=== PATIENT | female | born 1985 | race African-American/Black ===

== ENCOUNTER 2016-09-27 01:32 | Emergency (ER) | payer OTHER ==
[~2016-09-27] VITALS: Ht 172.7 cm; Wt 70.3 kg
[~2016-09-27 01:32] MED LIST: AMLODIPINE BESYL5 M1 PO; CYCLOBENZAPRINE10 M1 PO; FLEXERIL10 MG PO; IBUPROFEN600 M1 PO; LASIX20 M1 PO; LISINOPRIL10 M1 PO; LYRICA100 M1 PO; LYRICA50 MG PO; OXYCODONE HCL30 M1 PO; PATADAY2.5 ML OPH; PERCOCET 5-3251 EACH PO; TESSALON PERLE100 M1 PO; ULTRAM(MONOGRAP50 MG PO; VALIUM10 M1 PO; VOLTAREN75 MG PO; ZITHROMAX250 M2 PO
--- NOTE | 2016-09-27 01:47 | ED GENERAL ADULT ---
History of Present Illness General Chief Complaint: Lower Extremity Problems Stated Complaint: DIFF AMBULATING Source: patient, old records, EMS Exam Limitations: no limitations Vital Signs & Intake/Output Vital Signs & Intake/Output Vital Signs Date Time Temp Pulse Resp B/P Pulse O2 O2 Flow FiO2 Ox Delivery Rate 09/27 0527 96.5 67 16 162/88 09/27 0355 66 16 120/98 97 Room Air 09/27 0347 66 131/104 09/27 0346 64 131/104 98 09/27 0137 96.9 75 22 168/110 100 Room Air Allergies Coded Allergies: Penicillins (ANAPHYLAXIS 05/02/16) naproxen (ANAPHYLAXIS 05/02/16) Reconcile Medications Amlodipine Besylate 5 MG TABLET 5 MG PO D HTN (Reported) Diazepam (Valium) 10 MG TABLET 10 MG PO 5 TIMES A DA PRN DJD (Reported) Diclofenac Sodium (Voltaren) 75 MG ECT 1 TAB PO BID PRN PAIN Furosemide (Lasix) 20 MG TABLET 1 TAB PO DAILY SWELLING Ibuprofen 600 MG TABLET 1 TAB PO Q6 PRN PAIN with food Lisinopril 10 MG TABLET 10 MG PO D HTN (Reported) Olopatadine HCl (Pataday) 2.5 ML DROPS 1 GTT OPH TID PRN WATERY EYES Oxycodone HCl 30 MG TABLET 1 TAB PO 5 TIMES A DAY PAIN (Reported) Oxycodone HCl/Acetaminophen (Percocet 5-325 MG Tablet) 1 EACH TABLET 1 TAB PO BID PRN PAIN TEN...[id number] Oxycodone HCl/Acetaminophen (Percocet 5-325 MG Tablet) 5 MG-325 MG TABLET 1 TAB PO Q6P PRN pain Pregabalin (Lyrica) 75 MG CAPSULE 75 MG PO TID NEUROPATHY (Reported) Pregabalin (Lyrica) 50 MG CAP 1 CAP PO QDAY NERVE PAIN Triage Note: PER PT RLE PAIN UNABLE TO AMBULATE FOR AWHILE WAS ON CRUTCHES AFTER A FALL, BUT DENIES ANY NEW INJURY. PAIN 10/10 REPORTS DOES NOT GET MENSES Triage Nurses Notes Reviewed? yes : No Patient currently breastfeeds: No HPI: Patient presents with right lower extremity numbness and weakness over the past 2 days, right hand and arm weakness and pain over the past month and diffuse body pain for the past year. Patient denies any recent trauma. Patient states that she has been able to walk for the past 2 days and her boyfriend has had to carry her everywhere. Patient states that she has to move her right leg by picking it up to move it. There is no pain in the leg it just feels numb. She also has an aching pain in her right arm which is constant for the past month. It increases movement. She rates it as 7 out of 10. There are no aggravating or mitigating factors. The diffuse body pain or cramps and they're constant. There are no aggravating or mitigating factors. There is no radiation. She rates them as 8 out of 10. Patient has been seen by her primary care physician. Patient also states that she is having urinary frequency but there is no incontinence of bowel or bladder. There are no fevers or chills. There is no dysuria. Past History Travel History Traveled to [place] past 21 day No Medical History Any Pertinent Medical History? 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 No Review of Systems Review of Systems Constitutional: Reports: no symptoms. EENTM: Reports: no symptoms. Respiratory: Reports: no symptoms. Cardiovascular: Reports: no symptoms. GI: Reports: no symptoms. Genitourinary: Reports: no symptoms. Musculoskeletal: Reports: see HPI. Skin: Reports: no symptoms. Neurological/Psychological: Reports: see HPI. Hematologic/Endocrine: Reports: no symptoms. Immunologic/Allergic: Reports: no symptoms. All Other Systems: Reviewed and Negative Physical Exam Physical Exam General Appearance: well developed/nourished, alert, awake, anxious, mild distress Head: atraumatic, normal appearance Eyes: Bilateral: PERRL, EOMI. Ears, Nose, Throat: normal pharynx, normal ENT inspection, hearing grossly normal Neck: normal inspection, supple, full range of motion Respiratory: normal breath sounds, chest non-tender, no respiratory distress, lungs clear Cardiovascular: regular rate/rhythm, normal peripheral pulses Peripheral Pulses: 4+ radial (R), 4+ radial (L), 3+ tibialis posterior (R), 3+ tibialis posterior ( L), 3+ dorsalis pedis (R), 3+ dorsalis pedis (L) Gastrointestinal: normal bowel sounds, soft, non-tender, no organomegaly Back: normal inspection, normal range of motion Extremities: normal inspection, normal capillary refill, no edema Neurologic/Psych: awake, alert, oriented x 3, normal mood/affect, MOTOR STRENGTH 3 OUT OF 5 IN BOTH THE RIGHT AND LEFT LEG. tHE PATIENT STATES THAT SHE HAS SENSORY LOSS TO THE RIGHT LEG HOWEVER SHE WITHDRAWS APPROPRIATELY WITH PAIN. cAPILLARY REFILL IS LESS THAN 2 SECONDS. rEFLEXES ARE INTACT. tHERE IS NO PRONATOR DRIFT. tHERE IS NORMAL FINGER TO NOSE AND NORMAL DYSDIADOCHOKINESIA. Reflexes: 3+: knee (R), knee (L), ankle (R), ankle (L). Skin: intact, normal color, warm/dry Lymphatic: no anterior cervical reed Core Measures ACS in differential dx? No CVA/TIA Diagnosis: No Severe Sepsis Present: No Septic Shock Present: No Progress Differential Diagnoses I considered the following diagnoses in my evaluation of the patient: Plan of Care: Orders Procedure Date/time Status URINALYSIS 09/27 146 Complete HUMAN BETA HCG SCREEN 09/27 146 Complete COMPREHENSIVE METABOLIC PANEL 09/27 146 Complete CBC WITHOUT DIFFERENTIAL 09/27 146 Complete Laboratory Tests 09/27/16 0517: Urine Color STRAW, Urine Clarity HAZY H, Urine pH 7.0, Ur Specific Decker 1.015, Urine Protein TRACE H, Urine Ketones NEG, Urine Nitrite NEG, Urine Bilirubin NEG, Urine Urobilinogen 0.2, Ur Leukocyte Esterase NEG, Ur Microscopic SEDIMENT EXAMINED, Urine RBC 1-3, Urine WBC RARE, Ur Epithelial Cells FEW, Urine Mucus RARE, Urine Hemoglobin TRACE-INTACT, Urine Glucose NEG 09/27/16 0209: Anion Gap 8, Estimated GFR > 60, BUN/Creatinine Ratio 20.0, Glucose 89, Calcium 9.5, Total Bilirubin 0.4, AST 14, ALT 19, Alkaline Phosphatase 57, Total Protein 7.4, Albumin 4.1, Globulin 3.3, Albumin/Globulin Ratio 1.2, Total Beta HCG NEGATIVE, CBC w Diff NO MAN DIFF REQ, RBC 4.16 L, MCV 89.9, MCH 29.3, RDW 14.3, MPV 7.0 L, Gran % 51.6, Lymphocytes % 35.7, Monocytes % 6.1, Eosinophils % 6.0 H, Basophils % 0.6, Absolute Granulocytes 3.8, Absolute Lymphocytes 2.6, Absolute Monocytes 0.5, Absolute Eosinophils 0.4, Absolute Basophils 0, PUBS MCHC 32.5 L Diagnostic Imaging: Viewed by Me: CT Scan. Discussed w/RAD: CT Scan. Radiology Impression: PATIENT: BEVERLY HARDIN PRESENT AGE: 31 PATIENT ACCOUNT NO: [id number] : 83 LOCATION: [facility] ORDERING PHYSICIAN: PASTOR ALFARO MD SERVICE DATE: 09/27/16 EXAM TYPE: CAT - CT HEAD WO IV CONTRAST EXAMINATION: CT HEAD WITHOUT CONTRAST CLINICAL INFORMATION: Right-sided weakness COMPARISON: None. TECHNIQUE: Contiguous axial imaging was performed from the skull base to vertex without intravenous administration of contrast. DLP: 529.16 mGy-cm. FINDINGS: There is no evidence of acute intracranial hemorrhage or territorial infarction. No abnormal mass effect or midline shift is seen. to white matter differentiation is well preserved. No extra-axial fluid collections are identified. The ventricles are normal in size. There is no abnormal attenuation within the brain parenchyma. The osseous structures and soft tissues are normal. The mastoid air cells and visualized portions of the paranasal sinuses are well aerated. IMPRESSION: No acute intracranial pathology. DICTATED BY: KARAN MIDDLETON MD DATE/TIME DICTATED :09/27/16342 FIRE RANGER:NUPUR DATE/TIME TRANSCRIBED:09/27/16342 CONFIDENTIAL, DO NOT COPY WITHOUT APPROPRIATE AUTHORIZATION. < Electronically signed in Other Vendor System> SIGNED BY: KARAN MIDDLETON MD 09/27/16 0350 Initial ED EKG: none Comments: Patient states that she has never had these symptoms before however she was seen in July for very similar symptoms. This was mentioned to the patient and she stated, "oh yeah but this is worser." Patient states that she is not feeling any better however the patient ambulated in the emergency department. When informed that she was walking normally patient stated that she had to move her right leg for however there is no evidence of that and watching her walk. Departure Departure Disposition: HOME OR SELF CARE Condition: Stable Clinical Impression Primary Impression: Leg numbness Referrals: REBECCA MORGAN,MICHAEL BOYLE MD,MED Huerta (PCP/Family) Additional Instructions: Please follow up with her primary care physician as well as orthopedics for further evaluation and treatment. Return if symptoms worsen or for any concerns. Departure Forms: Customer Survey General Discharge Information Critical Care Note Critical Care Note Critical Care Time: non-applicable
[2016-09-27 02:22] LABS: ABSOLUTE BASOPHIL COUNT 0 /CUMM (0.0-0.2); ABSOLUTE EOSINOPHIL COUNT 0.4 /CUMM (0.0-0.7); ABSOLUTE GRANULOCYTE CT 3.8 /CUMM (1.4-6.5); ABSOLUTE LYMPH COUNT 2.6 /CUMM (1.2-3.4); ABSOLUTE MONOCYTE COUNT 0.5 /CUMM (0.10-0.60); BASOPHIL % 0.6 % (0.0-2.0); GRANULOCYTE % 51.6 % (42.2-75.2); HEMATOCRIT 37.3 % (37-47); MEAN CORPUSCULAR HGB 29.3 PG (27.0-31.0); MEAN CORPUSCULAR HGB CONC 32.5 G/DL (33.0-37.0); MEAN CORPUSCULAR VOLUME 89.9 FL (81.0-99.0); PLATELET COUNT 326 /CUMM (130-400); RBC DISTRIBUTION WIDTH 14.3 % (11.5-14.5); RED BLOOD CELL CT 4.16 /CUMM (4.20-5.40); WHITE BLOOD CELL COUNT 7.4 /CUMM (4.8-10.8)
--- NOTE | 2016-09-27 03:50 | CT SCAN REPORT ---
EXAMINATION: CT HEAD WITHOUT CONTRAST CLINICAL INFORMATION: Right-sided weakness COMPARISON: None. TECHNIQUE: Contiguous axial imaging was performed from the skull base to vertex without intravenous administration of contrast. DLP: 529.16 mGy-cm. FINDINGS: There is no evidence of acute intracranial hemorrhage or territorial infarction. No abnormal mass effect or midline shift is seen. to white matter differentiation is well preserved. No extra-axial fluid collections are identified. The ventricles are normal in size. There is no abnormal attenuation within the brain parenchyma. The osseous structures and soft tissues are normal. The mastoid air cells and visualized portions of the paranasal sinuses are well aerated. IMPRESSION: No acute intracranial pathology.
[2016-09-27 05:27] VITALS: BP 162/88
== END 2016-09-27 06:26 ==
LOC: ERH 01:32
PROVIDERS: Emergency Medicine
DX: R20.0 Anesthesia of skin (principal); R53.1 Weakness; R35.0 Frequency of micturition; I10 Essential (primary) hypertension
CPT/HCPCS: 81001; 96374

== ENCOUNTER 2016-11-05 23:01 | Emergency (ER) | payer OTHER ==
[~2016-11-05] VITALS: Ht 167.6 cm; Wt 78.9 kg
[2016-11-05 23:11] VITALS: BP 122/78
--- NOTE | 2016-11-05 23:12 | ED NECK/BACK PAIN COMPLAINT ---
History of Present Illness General Chief Complaint: Low Back Pain/Injury Stated Complaint: MED REFILL Source: patient Exam Limitations: no limitations Vital Signs & Intake/Output Vital Signs & Intake/Output Vital Signs Date Time Temp Pulse Resp B/P Pulse O2 O2 Flow FiO2 Ox Delivery Rate 11/05 2311 97.2 88 14 122/78 96 Room Air ED Intake and Output 11/06 0000 11/05 1200 Intake Total Output Total Balance Patient 174 lb Weight Allergies Coded Allergies: Penicillins (ANAPHYLAXIS 05/02/16) naproxen (ANAPHYLAXIS 05/02/16) Reconcile Medications Amlodipine Besylate 5 MG TABLET 5 MG PO D HTN (Reported) Cyclobenzaprine HCl 10 MG TABLET 1 TAB PO 4 TIMES/DAY PRN MUSCLE SPASM Diazepam (Valium) 10 MG TABLET 10 MG PO 5 TIMES A DA PRN DJD (Reported) Diclofenac Sodium (Voltaren) 75 MG ECT 1 TAB PO BID PRN PAIN Furosemide (Lasix) 20 MG TABLET 1 TAB PO DAILY SWELLING Ibuprofen 600 MG TABLET 1 TAB PO Q6 PRN PAIN with food Lisinopril 10 MG TABLET 10 MG PO D HTN (Reported) Olopatadine HCl (Pataday) 2.5 ML DROPS 1 GTT OPH TID PRN WATERY EYES Oxycodone HCl 30 MG TABLET 1 TAB PO 5 TIMES A DAY PAIN (Reported) Oxycodone HCl/Acetaminophen (Percocet 5-325 MG Tablet) 1 EACH TABLET 1 TAB PO BID PRN PAIN TEN...[id number] Oxycodone HCl/Acetaminophen (Percocet 5-325 MG Tablet) 5 MG-325 MG TABLET 1 TAB PO Q6P PRN pain Pregabalin (Lyrica) 75 MG CAPSULE 75 MG PO TID NEUROPATHY (Reported) Pregabalin (Lyrica) 50 MG CAP 1 CAP PO QDAY NERVE PAIN Triage Note: STATES RAN OUT OF OXCODONE AND WOULD LIKE A REFILL Triage Nurses Notes Reviewed? yes Onset: Gradual Duration: day(s): Timing: recent history Quality/Severity: moderate Location: lumbar spine Radiation: none Context: turning/bending Method of Injury: unknown Loss of Consciousness: no loss of consciousness Modifying Factors: movement Associated Symptoms: muscle spasm HPI: 31-year-old woman with chronic back pain on oxycodone presents seeking treatment for her chronic lower back pain. She states that she ran out of her narcotics. She notes no new injury. She notes discomfort with twisting and bending. She has no weakness or radiating pain. She is otherwise well and has no other concerns. Past History Medical History Any Pertinent Medical History? 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 No Review of Systems Review of Systems Constitutional: Reports: no symptoms. Eyes: Reports: no symptoms. Ears, Nose, Throat, Mouth: Reports: no symptoms. Respiratory: Reports: no symptoms. Cardiovascular: Reports: no symptoms. Gastrointestinal/Abdominal: Reports: no symptoms. Musculoskeletal: Reports: no symptoms. Skin: Reports: no symptoms. Neurological/Psychological: Reports: no symptoms. All Other Systems: Reviewed and Negative Physical Exam Physical Exam General Appearance: well developed/nourished, mild distress Head: atraumatic Eyes: Bilateral: PERRL, EOMI. Ears, Nose, Throat, Mouth: hearing grossly normal Neck: normal inspection, supple, full range of motion, normal alignment Respiratory: normal breath sounds Cardiovascular: regular rate/rhythm Gastrointestinal: soft, non-tender Back: normal inspection, muscle spasm, no vertebral tenderness Extremities: normal range of motion Neurologic/Psych: awake, alert, oriented x 3, normal mood/affect Skin: intact, normal color, warm/dry Comments: Light touch, strength, sensation, deep tendon reflexes are symmetrical bilaterally. Progress Differential Diagnosis: muscle spasm versus chronic pain versus other Plan of Care: Current Medications Sig/John Start time Last Medication Dose Stop Time Status Admin Acetaminophen 975 MG ONCE ONE 11/05 2329 UNVr (Tylenol) 11/05 2330 Cyclobenzaprine HCl 10 MG ONCE ONE 11/05 2329 UNVr (Flexeril 10MG Tab) 11/05 2330 Departure Departure Disposition: HOME OR SELF CARE Condition: Stable Clinical Impression Primary Impression: Chronic back pain Secondary Impressions: Muscle spasm Referrals: [place] MORGAN,MED Huerta (PCP/Family) Departure Forms: Customer Survey General Discharge Information Prescriptions: Current Visit Scripts Cyclobenzaprine HCl 1 TAB PO 4 TIMES/DAY PRN MUSCLE SPASM #30 TAB Ref 1 Comments Patient has a pain contract with her provider. Thus, I will prescribe her cyclobenzaprine. Close follow-up advised
[2016-11-05] MEDS ORDERED: CYCLOBENZAPRINE10 M1 PO (23:20)
== END 2016-11-05 23:57 ==
LOC: ERH 23:01
DX: G89.29 Other chronic pain (principal); M62.830 Muscle spasm of back
CPT/HCPCS: 99281

== ENCOUNTER 2016-11-23 11:23 | Inpatient (IN) | payer OTHER ==
[~2016-11-23] VITALS: Ht 175.3 cm; Wt 81.2 kg
--- NOTE | 2016-11-23 11:32 | ED NEURO DEFICIT/STROKE ---
History of Present Illness General Chief Complaint: General Adult Stated Complaint: BIBA FOR R SIDED WEAKNESS Source: patient, old records, EMS Exam Limitations: poor historian Vital Signs & Intake/Output Vital Signs & Intake/Output Vital Signs Date Time Temp Pulse Resp B/P Pulse O2 O2 Flow FiO2 Ox Delivery Rate 11/23 1432 99.6 100 16 182/92 97 Nasal 2.0L Cannula 11/23 1305 100.0 103 16 175/94 100 Nasal 4.0L Cannula 11/23 1200 Nasal 2.0L Cannula 11/23 1139 100.3 112 18 186/96 83 Room Air Allergies Coded Allergies: Penicillins (ANAPHYLAXIS 05/02/16) naproxen (ANAPHYLAXIS 05/02/16) Triage Nurses Notes Reviewed? yes Onset: Abrupt Duration: hour(s):, constant, continues in ED Timing: single episode today Severity: moderate, severe New Weakness: RLE, LUE, right facial Vision Problem? No Glaucoma? No HPI: 31-year-old female comes into the emergency room for further evaluation of complaining of right sided paralysis upon waking up from a nap this morning. Patient reports that she had plates placed in her cervical spine back in early September. Patient is on 30 mg of oxycodone 5 times a day. Patient reports she woke up the headache and feels like her right side can't move it feels numb. Denies any slurred speech or confusion. No fever chills vomiting. Denies any pain in her neck. Denies any prior history of this ever happening. Nothing seems to make the symptoms better or worse. (TRISTAN GAMA,AMADO) Reconcile Medications Amlodipine Besylate 5 MG TABLET 1 TAB PO DAILY HTN (Reported) Aripiprazole (Abilify) 10 MG TABLET 1 TAB PO DAILY DEPRESSION (Reported) Diazepam (Valium) 10 MG TABLET 10 MG PO TID PRN DJD (Reported) Diclofenac Sodium 75 MG TABLET.DR 1 TAB PO BID PAIN (Reported) Folic Acid 1 MG TABLET 1 TAB PO DAILY SUPPLEMENT (Reported) Furosemide (Lasix) 20 MG TABLET 1 TAB PO DAILY SWELLING Lisinopril 10 MG TABLET 10 MG PO D HTN (Reported) Oxycodone HCl 30 MG TABLET 1 TAB PO 5 TIMES A DAY PAIN (Reported) Pregabalin (Lyrica) 75 MG CAPSULE 75 MG PO TID NEUROPATHY (Reported) Sennosides/Docusate Sodium (Docusate Sodium-Senna Tablet) 8.6 MG-50 MG TABLET 2 TAB PO BID CONSTIPATION (Reported) Thiamine HCl (B-1) 100 MG TABLET 1 TAB PO DAILY SUPPLEMENT (Reported) Trazodone HCl 50 MG TABLET 1 TAB PO QPM SLEEP (Reported) (MARLINE LOZANO MD) Past History Travel History Traveled to [place] past 21 day No Medical History Any Pertinent Medical History? 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 No (AMADO CÁRDENAS) Review of Systems Review of Systems Constitutional: Reports: no symptoms. EENTM: Reports: no symptoms. Respiratory: Reports: no symptoms. Cardiovascular: Reports: no symptoms. GI: Reports: no symptoms. Genitourinary: Reports: no symptoms. Musculoskeletal: Reports: see HPI. Skin: Reports: no symptoms. Neurological/Psychological: Reports: see HPI. Hematologic/Endocrine: Reports: no symptoms. Immunologic/Allergic: Reports: no symptoms. All Other Systems: Reviewed and Negative (AMADO CÁRDENAS) Physical Exam Physical Exam General Appearance: well developed/nourished, alert, awake Head: atraumatic, normal appearance Eyes: Bilateral: normal appearance, PERRL, EOMI. Ears, Nose, Throat: normal ENT inspection, moist mucous membrane, hearing grossly normal Neck: normal inspection Respiratory: normal breath sounds, no respiratory distress Cardiovascular: regular rate/rhythm Gastrointestinal: soft Back: normal inspection Extremities: normal range of motion Cranial Nerves: normal hearing, normal speech, PERRL Motor/Sensory: no motor/sensory deficits, decreased sensation on right side of body Skin: intact, normal color Core Measures CVA/TIA Diagnosis: No Severe Sepsis Present: No Septic Shock Present: No (AMADO CÁRDENAS) Progress Differential Diagnosis: acute glaucoma, Horta's Palsy, drug intoxication, electrolyte imbalance, encephalitis, hypoglycemia, intracranial Hem., intracranial mass/tumor, meningitis, migraine MARCH, seizure disorder, stroke, subarachnoid Hem., vertebrobasilar insuff., PE, Pneumonia, Plan of Care: Orders Procedure Date/time Status Heart Healthy Diet 11/23 D Active Code Status 11/23 1528 Active OXYGEN SETUP (GEN) 11/23 1458 Active Saline Lock 11/23 1458 Active Admit to inpatient 11/23 1458 Active Vital Signs 11/23 1458 Active Activity/Ambulation 11/23 1458 Active Code Status 11/23 1458 Complete Patient Data 11/23 1446 Active BLOOD CULTURE 11/23 1444 Active Add-on Test (ER Only) 11/23 1246 Active HUMAN BETA HCG SCREEN 11/23 1227 Complete Intake & Output 11/23 1144 Active URINALYSIS 11/23 1138 Complete URINE 11/23 1131 Complete TROPONIN LEVEL 11/23 1131 Complete PARTIAL THROMBOPLASTIN TIME 11/23 1131 Complete PROTHROMBIN TIME 11/23 1131 Complete D-DIMER 11/23 1131 Complete COMPREHENSIVE METABOLIC PANEL 11/23 1131 Complete CBC WITHOUT DIFFERENTIAL 11/23 1131 Complete EKG 11/23 1131 Active Current Medications Sig/John Start time Last Medication Dose Stop Time Status Admin Azithromycin 500 MG ONCE ONE 11/23 1445 AC (Zithromax) 11/23 1544 Dextrose/Water 250 ML (D5W) Laboratory Tests 11/23/16 1411: Urine Test NEGATIVE 11/23/16 1411: Urine Color YEL, Urine Clarity HAZY H, Urine pH 6.0, Ur Specific [place] 1.020, Urine Protein TRACE H, Urine Ketones NEG, Urine Nitrite NEG, Urine Bilirubin NEG, Urine Urobilinogen 0.2, Ur Leukocyte Esterase NEG, Ur Microscopic SEDIMENT EXAMINED, Urine RBC 3-5, Ur Epithelial Cells MOD H, Urine Bacteria MANY H, Urine Hemoglobin MOD H, Urine Glucose NEG 11/23/16 1227: Anion Gap 10, Estimated GFR > 60, BUN/Creatinine Ratio 20.0, Glucose 114 H, Calcium 9.6, Total Bilirubin 0.4, AST 19, ALT 21, Alkaline Phosphatase 75, Troponin I 0.05, Total Protein 7.4, Albumin 4.2, Globulin 3.2, Albumin/Globulin Ratio 1.3, Total Beta HCG NEGATIVE, PT 13.0 H, INR 1.24 H, APTT 27, D-Dimer 807 H, CBC w Diff MAN DIFF ORDERED, RBC 4.40, MCV 89.0, MCH 29.1, RDW 15.3 H, MPV 7.2 L, Gran % 94.8 H, Lymphocytes % 3.5 L, Monocytes % 1.4 L, Eosinophils % 0.1, Basophils % 0.2, Absolute Granulocytes 13.3 H, Segmented Neutrophils 80 H, Band Neutrophils 5, Absolute Lymphocytes 0.5 L, Lymphocytes 7 L, Monocytes 8, Absolute Monocytes 0.2, Absolute Eosinophils 0, Absolute Basophils 0, Platelet Estimate ADEQUATE, Normocytic RBCs VERIFIED, Normochromic RBCs VERIFIED, PUBS MCHC 32.7 L Microbiology 11/24 1443 BLOOD: Blood Culture - ORD 11/24 1443 BLOOD: Blood Culture - ORD Diagnostic Imaging: Viewed by Me: CT Scan. Discussed w/RAD: CT Scan. Radiology Impression: SERVICE DATE: 11/23/161325 EXAM TYPE: CAT - CTA CHEST- PULMONARY EMBOLISM EXAMINATION: CT ANGIOGRAM OF THE CHEST WITH AND WITHOUT CONTRAST (CT PULMONARY ANGIOGRAM FOR PE) CLINICAL INFORMATION: Elevated d-dimer. Tachypnea. Hypoxia. COMPARISON: None TECHNIQUE: Prior to contrast administration , noncontrast localization images were obtained. Subsequently, multidetector volumetric imaging was performed from the thoracic inlet to below the diaphragms following the administration of 95 mL Optiray 350 intravenous contrast. No contrast reaction reported Sagittal, coronal, and MIP oblique sagittal reformatted images were obtained on the CT workstation, uploaded to PACS, and reviewed. Total exam dose-length product 495 mGy-cm FINDINGS: QUALITY OF STUDY/ CONTRAST BOLUS: Suboptimal. The opacification of the pulmonary arteries precludes assessment for pulmonary emboli. Even the main pulmonary artery is not sufficiently enhanced PULMONARY ARTERIES: Nondiagnostic for pulmonary emboli. The degree of enhancement isn't sufficient for exclusion of pulmonary emboli THORACIC AORTA: The aorta is well-opacified and normal caliber. There is no aneurysm or dissection. LUNG: There is no abnormality of the trachea or mainstem bronchi. There are large areas of consolidation in the left lung greatest at the left lower lobe but also present in the left upper lobe. Smaller degrees of consolidation in the right upper lobe with involvement of the superior segment of the right lower lobe. PLEURA: No significant pleural fluid. There is no pneumothorax MEDIASTINUM: No measurable mediastinal adenopathy. No significant pericardial fluid. The haroon are difficult to evaluate. Adenopathy not excluded. No evidence of septal bowing or right heart strain. CHEST WALL/AXILLA: No axillary or internal mammary lymphadenopathy. OSSEOUS STRUCTURES: No acute or suspicious osseous abnormality. UPPER ABDOMEN: No suspicious abnormality in the visualized upper abdomen No reflux of contrast into the hepatic veins to suggest elevated right heart pressures. IMPRESSION: The study is nondiagnostic for pulmonary embolus. The degree of enhancement of the pulmonary vessels is insufficient. Extensive bilateral areas of consolidation greatest in the left lung. This may represent pneumonia VTE: indeterminate DICTATED BY: RAMIRO STEVENS MD DATE/TIME DICTATED:11/23/161408 AIRCRAFT LOG CLERK:NUPUR DATE/TIME TRANSCRIBED:11/23/161408 CONFIDENTIAL, DO NOT COPY WITHOUT APPROPRIATE AUTHORIZATION., SERVICE DATE: 11/23/16 EXAM TYPE: CAT - CT CERV SPINE WO IV CONTRAST; CT HEAD WO IV CONTRAST EXAMINATION: CT HEAD WITHOUT CONTRAST, CT CERVICAL SPINE WITHOUT CONTRAST CLINICAL INFORMATION: Headache. Right-sided paralysis. COMPARISON: Portions of a head CT 09/27/16 TECHNIQUE: Multidetector CT examination of the head is performed without contrast. Multidetector CT of the cervical spine without contrast. Multiplanar postprocessing DLP: 1135 mGy-cm FINDINGS: Head CT: There is no evidence of a recent intracranial hemorrhage or extra-axial collection. The midline structures are nondisplaced. The ventricles, cisterns, and sulci are within normal limits. There is no evidence of an intra- axial mass. There are no suspicious focal areas of abnormal brain attenuation. The matamoros-white interface is within normal limits. There is no evidence of acute territorial infarct. The paranasal sinuses and mastoids are within normal limits. Cervical CT: The digital burglar alarm installer radiograph demonstrates findings of plate and screw fixation along the ventral aspect from C3 through the lower cervical spine. There are posterior spinal fixation rods. There is plate fixation to the ventral aspect of C3, C4, C5 and C6 by bilateral screws. There is bone present at the sites of discectomy and perhaps corpectomy. The hardware appears appropriately applied to the ventral aspect of the vertebrae. No obvious instrument failure. There has been removal of the posterior elements at C3, C4, C5 and C6. Canal contents are unevaluable. There is no subluxation. The facets appear appropriately aligned. There is no abnormality at the craniovertebral junction. There is no acute fracture. No obvious bone destruction. No large prevertebral collection. There are poorly defined groundglass opacities and nodular densities in the visualized lung apices. IMPRESSION: 1. There is no evidence of a recent intracranial hemorrhage. 2. No acute infarct. 3. Evidence of extensive previous cervical instrumentation and decompression. Canal contents are unevaluable. No definite acute cervical fracture or subluxation. Abnormalities in the lung apices are not fully evaluated or included. Initial ED EKG: normal intervals, normal p-waves, normal sinus rhythm, rate (112 ) (AMADO CÁRDENAS) Departure Departure Disposition: STILL A PATIENT Condition: Stable Clinical Impression Primary Impression: Bilateral pneumonia Secondary Impressions: Hypoxia Referrals: MED BOYLE MD (PCP/Family) Departure Forms: Customer Survey General Discharge Information Admission Note Spoke With: KASHMIR FERRERA MD Documentation of Exam: Documentation of any treatments & extenuating circumstances including Concerns Regarding Discharge (functional status, medication knowledge or non-compliance, living conditions, etc.) that warrant an admission rather than observation: Patient's O2 saturation was 83% upon arrival. Her oxygen drops whenever she comes off of the O2 here. Patient will require supplemental oxygen. Bilateral pneumonia seen with elevated white count and low-grade fever. Patient will require IV antibiotics. Serial labs. Possibly pulmonary consultation. High risk. Patient also complaining of right-sided weakness but has no focal weakness/numbness on exam. Normal neurological exam. CT scan shows no evidence of CVA. (AMADO CÁRDENAS) PA/MARINE FIRE FIGHTER Co-Sign Statement Statement: ED Attending supervision documentation- [] I saw and evaluated the patient. I have also reviewed all the pertinent lab results and diagnostic results. I agree with the findings and the plan of care as documented in the PA's/MARINE FIRE FIGHTER's documentation. x I have reviewed the ED Record and agree with the PA's/MARINE FIRE FIGHTER's documentation. [] Additions or exceptions (if any) to the PAs/MARINE FIRE FIGHTER's note and plan are summarized below: [] (BLAKE MORGAN,MARLINE)
[2016-11-23 12:34] LABS: ABSOLUTE BASOPHIL COUNT 0 /CUMM (0.0-0.2); ABSOLUTE EOSINOPHIL COUNT 0 /CUMM (0.0-0.7); ABSOLUTE GRANULOCYTE CT 13.3 /CUMM (1.4-6.5); ABSOLUTE LYMPH COUNT 0.5 /CUMM (1.2-3.4); ABSOLUTE MONOCYTE COUNT 0.2 /CUMM (0.10-0.60); BASOPHIL % 0.2 % (0.0-2.0); EOSINOPHIL % 0.1 % (0-5); HEMATOCRIT 39.2 % (37-47); MEAN CORPUSCULAR HGB 29.1 PG (27.0-31.0); MEAN CORPUSCULAR HGB CONC 32.7 G/DL (33.0-37.0); MEAN PLATELET VOLUME 7.2 FL (7.4-10.4); PLATELET COUNT 295 /CUMM (130-400); RBC DISTRIBUTION WIDTH 15.3 % (11.5-14.5); WHITE BLOOD CELL COUNT 14.1 /CUMM (4.8-10.8)
[2016-11-23 12:35] LABS: GRANULOCYTE % 94.8 % (42.2-75.2)
[2016-11-23 12:42] LABS: PTT 27 SEC (25-37)
--- NOTE | 2016-11-23 13:57 | CT SCAN REPORT ---
EXAMINATION: CT HEAD WITHOUT CONTRAST, CT CERVICAL SPINE WITHOUT CONTRAST CLINICAL INFORMATION: Headache. Right-sided paralysis. COMPARISON: Portions of a head CT 09/27/16 TECHNIQUE: Multidetector CT examination of the head is performed without contrast. Multidetector CT of the cervical spine without contrast. Multiplanar postprocessing DLP: 1135 mGy-cm FINDINGS: Head CT: There is no evidence of a recent intracranial hemorrhage or extra-axial collection. The midline structures are nondisplaced. The ventricles, cisterns, and sulci are within normal limits. There is no evidence of an intra-axial mass. There are no suspicious focal areas of abnormal brain attenuation. The matamoros-white interface is within normal limits. There is no evidence of acute territorial infarct. The paranasal sinuses and mastoids are within normal limits. Cervical CT: The digital tilting saw operator radiograph demonstrates findings of plate and screw fixation along the ventral aspect from C3 through the lower cervical spine. There are posterior spinal fixation rods. There is plate fixation to the ventral aspect of C3, C4, C5 and C6 by bilateral screws. There is bone present at the sites of discectomy and perhaps corpectomy. The hardware appears appropriately applied to the ventral aspect of the vertebrae. No obvious instrument failure. There has been removal of the posterior elements at C3, C4, C5 and C6. Canal contents are unevaluable. There is no subluxation. The facets appear appropriately aligned. There is no abnormality at the craniovertebral junction. There is no acute fracture. No obvious bone destruction. No large prevertebral collection. There are poorly defined groundglass opacities and nodular densities in the visualized lung apices. IMPRESSION: 1. There is no evidence of a recent intracranial hemorrhage. 2. No acute infarct. 3. Evidence of extensive previous cervical instrumentation and decompression. Canal contents are unevaluable. No definite acute cervical fracture or subluxation. Abnormalities in the lung apices are not fully evaluated or included.
--- NOTE | 2016-11-23 14:21 | CT SCAN REPORT ---
EXAMINATION: CT ANGIOGRAM OF THE CHEST WITH AND WITHOUT CONTRAST (CT PULMONARY ANGIOGRAM FOR PE) CLINICAL INFORMATION: Elevated d-dimer. Tachypnea. Hypoxia. COMPARISON: None TECHNIQUE: Prior to contrast administration, noncontrast localization images were obtained. Subsequently, multidetector volumetric imaging was performed from the thoracic inlet to below the diaphragms following the administration of 95 mL Optiray 350 intravenous contrast. No contrast reaction reported Sagittal, coronal, and MIP oblique sagittal reformatted images were obtained on the CT workstation, uploaded to PACS, and reviewed. Total exam dose-length product 495 mGy-cm FINDINGS: QUALITY OF STUDY/CONTRAST BOLUS: Suboptimal. The opacification of the pulmonary arteries precludes assessment for pulmonary emboli. Even the main pulmonary artery is not sufficiently enhanced PULMONARY ARTERIES: Nondiagnostic for pulmonary emboli. The degree of enhancement isn't sufficient for exclusion of pulmonary emboli THORACIC AORTA: The aorta is well-opacified and normal caliber. There is no aneurysm or dissection. LUNG: There is no abnormality of the trachea or mainstem bronchi. There are large areas of consolidation in the left lung greatest at the left lower lobe but also present in the left upper lobe. Smaller degrees of consolidation in the right upper lobe with involvement of the superior segment of the right lower lobe. PLEURA: No significant pleural fluid. There is no pneumothorax MEDIASTINUM: No measurable mediastinal adenopathy. No significant pericardial fluid. The haroon are difficult to evaluate. Adenopathy not excluded. No evidence of septal bowing or right heart strain. CHEST WALL/AXILLA: No axillary or internal mammary lymphadenopathy. OSSEOUS STRUCTURES: No acute or suspicious osseous abnormality. UPPER ABDOMEN: No suspicious abnormality in the visualized upper abdomen No reflux of contrast into the hepatic veins to suggest elevated right heart pressures. IMPRESSION: The study is nondiagnostic for pulmonary embolus. The degree of enhancement of the pulmonary vessels is insufficient. Extensive bilateral areas of consolidation greatest in the left lung. This may represent pneumonia VTE: indeterminate
[2016-11-23] MEDS ORDERED: FOLIC ACID1 M1 PO (14:55)
[2016-11-23] MEDS ORDERED: TRAZODONE HCL50 M1 PO (14:56)
[2016-11-23] MEDS ORDERED: B-1100 MG PO (14:56)
[2016-11-23] MEDS ORDERED: DOCUSATE SODIU1 EACH PO (14:56)
[2016-11-23] MEDS ORDERED: ABILIFY10 M1 PO (14:57)
[2016-11-23] MEDS ORDERED: DICLOFENAC SODI75 M2 PO (14:58)
--- NOTE | 2016-11-23 15:11 | History & Physical ---
ONI HURTADO 11/23/16 1509: General Information and HPI MD Statement: I have seen and personally examined BEVERLY HARDIN and documented this H&P. The patient is a 31 year old F who presented with a patient stated chief complaint of [numbness in arm]. Source of Information: patient Exam Limitations: no limitations History of Present Illness: According to the patient she was in her usual state of health up until this morning when she woke up and her right arm was numb. She states that she slept on her right side last night and when she woke up at 11 AM this morning she had no sensations in her right arm. She denies any fever, chills, paresthesias, weakness, cough, shortness of breath, chest pain, sinus tenderness, sore throat or ear pain. She denies any history of fall. She denies any episodes of urinary incontinence. She does admit to low back pain that is chronic and this does not radiate down to her lower extremities. She does however admit to a headache that she rates as a 5 out of 10 frontal in location. Of note she smokes half pack a day and has been doing for the past 11 years. She denies illicit drug use but does admit to drinking occasionally over the weekends. Allergies/Medications Home Med list Amlodipine Besylate 5 MG TABLET 1 TAB PO DAILY HTN (Reported) Aripiprazole (Abilify) 10 MG TABLET 1 TAB PO DAILY DEPRESSION (Reported) Diazepam (Valium) 10 MG TABLET 10 MG PO TID PRN DJD (Reported) Diclofenac Sodium 75 MG TABLET.DR 1 TAB PO BID PAIN (Reported) Folic Acid 1 MG TABLET 1 TAB PO DAILY SUPPLEMENT (Reported) Furosemide (Lasix) 20 MG TABLET 1 TAB PO DAILY SWELLING Lisinopril 10 MG TABLET 10 MG PO D HTN (Reported) Oxycodone HCl 30 MG TABLET 1 TAB PO 5 TIMES A DAY PAIN (Reported) Pregabalin (Lyrica) 75 MG CAPSULE 75 MG PO TID NEUROPATHY (Reported) Sennosides/Docusate Sodium (Docusate Sodium-Senna Tablet) 8.6 MG-50 MG TABLET 2 TAB PO BID CONSTIPATION (Reported) Thiamine HCl (B-1) 100 MG TABLET 1 TAB PO DAILY SUPPLEMENT (Reported) Trazodone HCl 50 MG TABLET 1 TAB PO QPM SLEEP (Reported) Past History Travel History Traveled to [place] past 21 day No Medical History Neurological: peripheral neuropathy EENT: NONE Cardiovascular: hypertension Respiratory: asthma Gastrointestinal: NONE Hepatic: NONE Renal: NONE Musculoskeletal: chronic back pain, 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 Home Who Do You Live With? child Smoking Status: Current Some Day Smoker (1/2 pack/day) ETOH Use: occasional use Illicit Drug Use: denies illicit drug use Functional Ability ADLs Independent: dressing, eating, toileting, bathing. Ambulation: walker Employment History Employment Unemployed Review of Systems Review of Systems Constitutional: Denies: chills, fever, weakness. EENTM: Denies: visual changes. Cardiovascular: Denies: chest pain, orthopena. Respiratory: Denies: cough, orthopnea, short of breath, sputum production, wheezing. GI: Denies: abdominal pain, constipation, diarrhea, nausea, vomiting. Genitourinary: Reports: no symptoms. Musculoskeletal: Reports: back pain, neck pain. Neurological/Psychological: Denies: headache, numbness, tingling, tremors. Exam & Diagnostic Data Last 24 Hrs of Vital Signs/I&O Vital Signs Date Time Temp Pulse Resp B/P Pulse O2 O2 Flow FiO2 Ox Delivery Rate 11/23 1432 99.6 100 16 182/92 97 Nasal 2.0L Cannula 11/23 1305 100.0 103 16 175/94 100 Nasal 4.0L Cannula 11/23 1200 Nasal 2.0L Cannula 11/23 1139 100.3 112 18 186/96 83 Room Air Intake & Output 11/23 1600 11/23 0800 11/23 0000 Intake Total Output Total Balance Patient 179 lb Weight Diagnostic Data Other Results SERVICE DATE: 11/23/16-113 EXAM TYPE: CAT - CT CERV SPINE WO IV CONTRAST; CT HEAD WO IV CONTRAST FINDINGS: Head CT: There is no evidence of a recent intracranial hemorrhage or extra-axial collection. The midline structures are nondisplaced. The ventricles, cisterns, and sulci are within normal limits. There is no evidence of an intra-axial mass. There are no suspicious focal areas of abnormal brain attenuation. The matamoros-white interface is within normal limits. There is no evidence of acute territorial infarct. The paranasal sinuses and mastoids are within normal limits. Cervical CT: The digital residential life director radiograph demonstrates findings of plate and screw fixation along the ventral aspect from C3 through the lower cervical spine. There are posterior spinal fixation rods. There is plate fixation to the ventral aspect of C3, C4, C5 and C6 by bilateral screws. There is bone present at the sites of discectomy and perhaps corpectomy. The hardware appears appropriately applied to the ventral aspect of the vertebrae. No obvious instrument failure. There has been removal of the posterior elements at C3, C4, C5 and C6. Canal contents are unevaluable. There is no subluxation. The facets appear appropriately aligned. There is no abnormality at the craniovertebral junction. There is no acute fracture. No obvious bone destruction. No large prevertebral collection. There are poorly defined groundglass opacities and nodular densities in the visualized lung apices. IMPRESSION: 1. There is no evidence of a recent intracranial hemorrhage. 2. No acute infarct. 3. Evidence of extensive previous cervical instrumentation and decompression. Canal contents are unevaluable. No definite acute cervical fracture or subluxation. Abnormalities in the lung apices are not fully evaluated or included. SERVICE DATE: 11/23/16 EXAM TYPE: CAT - CTA CHEST-PULMONARY EMBOLISM FINDINGS: QUALITY OF STUDY/CONTRAST BOLUS: Suboptimal. The opacification of the pulmonary arteries precludes assessment for pulmonary emboli. Even the main pulmonary artery is not sufficiently enhanced PULMONARY ARTERIES: Nondiagnostic for pulmonary emboli. The degree of enhancement isn't sufficient for exclusion of pulmonary emboli THORACIC AORTA: The aorta is well-opacified and normal caliber. There is no aneurysm or dissection. LUNG: There is no abnormality of the trachea or mainstem bronchi. There are large areas of consolidation in the left lung greatest at the left lower lobe but also present in the left upper lobe. Smaller degrees of consolidation in the right upper lobe with involvement of the superior segment of the right lower lobe. PLEURA: No significant pleural fluid. There is no pneumothorax MEDIASTINUM: No measurable mediastinal adenopathy. No significant pericardial fluid. The haroon are difficult to evaluate. Adenopathy not excluded. No evidence of septal bowing or right heart strain. CHEST WALL/AXILLA: No axillary or internal mammary lymphadenopathy. OSSEOUS STRUCTURES: No acute or suspicious osseous abnormality. UPPER ABDOMEN: No suspicious abnormality in the visualized upper abdomen No reflux of contrast into the hepatic veins to suggest elevated right heart pressures. IMPRESSION: The study is nondiagnostic for pulmonary embolus. The degree of enhancement of the pulmonary vessels is insufficient. Extensive bilateral areas of consolidation greatest in the left lung. This may represent pneumonia VTE: indeterminate Assessment/Plan Assessment: 31-year-old female with a past medical history of hypertension, peripheral neuropathy, chronic back pain secondary to disc herniation, osteoarthritis, spinal stenosis presents to the ER with chief complaint of right-sided paralysis after waking up from a nap this morning. Vitals at the time of admission blood pressure 186/96, pulse 112, respiratory rate 18, MAXIMUM TEMPERATURE 100.3 saturating 83% on room air. On physical exam she is alert and oriented 3, in no acute distress sitting comfortably in bed. HEENT revealed PERRLA, dry mucous membranes. She has a cervical collar in place. Cardiovascular exam revealed normal S1, S2, no murmurs rubs appreciated with regular rate together with tachycardia. Respiratory exam is pertinent for chest was here to auscultation bilaterally. Abdominal exam is benign with abdomen soft, nontender, nondistended with bowel sounds heard in all 4 quadrants, and a scar. Examination of the lower extremities did not reveal any edema. Neuro exam is grossly unremarkable with cranial nerves II through XII grossly intact, strength 5 out of 5 bilaterally in upper extremities, 4 out of 5 in lower extremities bilaterally, sensation intact , reflexes 2+ in all 4 extremities. Labs pertinent for leukocytosis with a white blood cell count of 14,100, 5 bands and H&H of 12.8/39.2, normal MCV of 89 and a platelet count of 295,000. Serum chemistries revealed a sodium of 144, potassium of 3.4, bicarbonate of 29, anion gap of 10, BUN:18, creatinine of 0.9, glucose elevated to 114. LFTs revealed AST/ALT of 19/21, alkaline phosphatase of 75, total bili is 0.4. First set of troponin negative at 0.05. INR 1.24, and a d-dimer elevated to 87. UA was hazy , with trace amount of proteinuria, moderate amount of epithelial cells, bacteriuria and moderate amount of hemoglobin. CTA chest was done to rule out pulmonary embolism which was a nondiagnostic study, extensive bilateral areas of consolidation more so in the left lung. CT head and neck was also done which showed no evidence of recent intracranial hemorrhage, acute infarct, evidence of extensive previous cervical instrumentation and decompression. There is no definite acute cervical fracture or subluxation. In the ER she received Narcan 0.4 mg IV 1, hydralazine 5 mg IV 1 and was put on azithromycin. Assessment and plan Admit to [facility] #Acute hypoxic respiratory failure Secondary to pulmonary embolism question versus pneumonia CTA was indeterminate Will get a VQ scan. Start on Levofloxacin for CAP, pt is allergic to Penicillin - F/U [facility], BC check hepatitis panel, HIV panel, procalcitonin #Right-sided numbness - In setting of spinal stenosis s/p surgery in Sep at [place] Most likely 2/2 Resolved with no neurological deficits Neurosurgery consult with Dr. Vega for tomorrow morning - PT eval in AM #Chronic back pain Continu ehome medications #Hypertension Continue on amlodipine 5 mg daily, lisinopril 10 mg daily, Lasix 20 mg daily #Peripheral neuropathy Continue on Lyrica 75 mg 3 times a day by mouth #Insomnia Continue trazodone 50 mg at bedtime - DVT prophylaxis Heparin 5000 international units 3 times a day subcutaneous - Diet Heart healthy -CODE STATUS Full code As Ranked By This Provider Problem List: 1. Back pain 2. Neuropathy 3. Numbness 4. Hypoxia 5. Bilateral pneumonia Core Measures/Miscellaneous Acute Coronary Syndrome ACS Diagnosis: No Cerebrovascular Accident CVA/TIA Diagnosis: No Congestive Heart Failure CHF Diagnosis: No Venous Thromboembolism VTE Risk Factors: Age > 40 No [facility] VTE prophylaxis d/t: No contraindications No VTE Pharm Prophylaxis d/t: No contraindications VTE Diagnosis: No VTE Type: NONE VTE Confirmed by (Test): NONE Severe Sepsis Severe Sepsis Present: No Septic Shock Septic Shock Present: No Miscellaneous Documentation Attending Case Discussed With: KASHMIR FERRERA MD Primary Care Physician: MED BOYLE MD Patient sees these Specialists Dr. Bo - Neurosurgery Dr. Connors - Neurology Level of Patient Care: General Medicine Consults Needed: Consulting Specialty: Neurosurgery Resident Review Statement Resident Statement: ADMITTED BY RESIDENT KASHMIR FERRERA MD 11/23/16 2018: General Information and HPI Allergies/Medications Allergies: Coded Allergies: acetaminophen (From TYLENOL) (Severe, STATES HER THROAT CLOSES UP 11/23/16) Penicillins (ANAPHYLAXIS 05/02/16) naproxen (ANAPHYLAXIS 05/02/16) Attending MD Review Statement Attending Statement Attending MD Statement: examined this patient, discuss w/resident/PA/QUILL SKINNER, agreed w/resident/PA/QUILL SKINNER, reviewed EMR data (avail), discussed with nursing, reviewed images, amended to note Attending Assessment/Plan: The patient is a 31 yo female who is status post recent cervical spinal surgery at [place] (09/2016) and has been on jail valium and oxycodone (Valium 10 mg tid and Oxycodone 30 mg 5x/day who presented in the [place] ED with c/o right sided weakness and numbness noted this morning. She had slept on her side. She denied any change in her pain. No bladder or bowel incontinence. No fever, chills, chest pain, palpitations or significant cough. She was noted to be hypoxic in the ED with pulse ox of 83% on room air. Subsequent CTPA was suboptimal for pulmonary embolism (inconclusive as patient began speaking during dye bolus and thus vessels not imaged), however did show large areas of alveolar consolidation in the left lower > left upper lobes and smaller area in right upper lobe. Physical Exam: VS: T 100.3, P 112-100, R 18, BP 186/96-182/92, PO 83% RA- 97% on 2L HEENT: eyes- PERRLA, EOMI jeremías- moist mucosa w/o lesions Neck: no bruits Chest: diminished breath sounds at bases, ? mild rhonchi Cor: RRR, nl S1, S2 w/o murm Abd: BS+, soft, NT Ext: no edema or cords, pulses 2+ Neuro: at time of my exam motor and sensory in UE and LE intact Labs/Tests- as above Impression/Plan: #Acute Right Sided Weakness/Numbness- in patient who is status post C3-6 instrumental fusion in 09/2016. CT shows no pathology and symptoms appear to have improved. The patient did state that she slept on right side. Plan: Admit to medical floor. Monitor neurologic checks for recurrent weakness. Consider neurosurgery evaluation in morning (or contact her neurosurgeon is at [facility]). PT consult. Consider MRI if more symptoms. #Acute Hypoxic Respiratory Failure - with several Pulmonary Infiltrates (? pneumonia). CTPA was inconclusive for PE, however subsequent lung scan was low probability. She does have low grade fever, however paucity of other pulmonary symptoms. Plan: Continue nasal oxygen and monitor pulse ox readings. Will treat as community acquired pneumonia- treat with levofloxin as is PCN allergic (anaphylaxis), Incentive spirometry. #Chronic Pain Syndrome- review of chart and CTPMP was checked showing patient has been using large amounts of Valium and Oxycodone (along with Lyrica) for many months. Use has not changed post surgery. Plan: Will continue her usual medications. May benefit from eventual OP chronic pain consult. Will defer to her OP PCP/Neurosurgeon. #Essential Hypertension- BP as above has been elevated (did not take meds today) . Plan: Continue Amlodipine, Lisinopril, Lasix.
[2016-11-23] MEDS ORDERED: AMLODIPINE BESYL5 M1 PO (15:30)
--- NOTE | 2016-11-23 16:54 | NUCLEAR MEDICINE REPORT ---
EXAMINATION: NM LUNG SCAN V/Q CLINICAL INFORMATION: Hypoxia. Suspect PE. COMPARISON: CTA chest 11/23/2016. CTA chest 11/23/2016. TECHNIQUE: Following inhalation of 8.8 mCi of xenon-133 gas images of both lungs were obtained in posterior projection. Subsequently 3.99 mCi of 99m Tc MAA was injected intravenously and images of both lungs were obtained in multiple projections. FINDINGS: On ventilation study there is overall decreased activity in entire left lung greater in the left lung base. Normal aeration of right lung is noted. There is normal washout of isotope activity from both lungs. No retention of isotope activity seen in either lung. On perfusion study there is significantly decreased flow to the entire left lung. No segmental defects seen. There is normal perfusion seen to the right lung except for slight decreased activity in the right lower lobe posterior basal segment. CTA chest reveal significant left lower and left upper lobe consolidation and mild consolidation right lower lobe paramediastinal based. IMPRESSION: Triple matched defect left lung on ventilation, perfusion with consolidation on CTA chest suggestive of low probability. There is normal ventilation and perfusion of right lung except for right post posterior basal segment decreased perfusion and ventilation corresponding to small consolidation seen on the CTA chest again suggestive of low probability for PE. Overall there is low probability for PE.
--- NOTE | 2016-11-23 18:12 | Admission Certification ---
Admission Certification Certification Statement - As attending physician, I certify that at the time of - admission, based on clinical presentation, severity of - symptoms, need for further diagnostic testing and - therapeutic interventions, and risk of adverse outcomes - without in-hospital treatment, in my clinical assessment, - this patient requires an acute hospital stay for a minimum - of two nights or longer. I have also considered psychsocial - factors such as support system, advanced age, financial - issues, cognitive issues, and failed out-patient treatments, - past re-admission history, safety of patient, and lack of - compliance as applicable. Specific rationale supporting this admission is: The patient presents with right sided weakness s/p prior cervical surgery, acute hypoxic respiratory failure that appears to be related to pneumonia. Needs admission for neurosurgical evaluation, physical therapy, and IV antibiotics. Oxygen support and close oxygen monitoring.
[2016-11-23 23:45] VITALS: BP 143/78
[2016-11-24 05:45] LABS: ABSOLUTE BASOPHIL COUNT 0 /CUMM (0.0-0.2); ABSOLUTE EOSINOPHIL COUNT 0 /CUMM (0.0-0.7); ABSOLUTE GRANULOCYTE CT 14.2 /CUMM (1.4-6.5); ABSOLUTE LYMPH COUNT 2.1 /CUMM (1.2-3.4); ABSOLUTE MONOCYTE COUNT 0.6 /CUMM (0.10-0.60); BASOPHIL % 0.1 % (0.0-2.0); EOSINOPHIL % 0.3 % (0-5); GRANULOCYTE % 83.5 % (42.2-75.2); HEMATOCRIT 36.1 % (37-47); MEAN CORPUSCULAR HGB 28.3 PG (27.0-31.0); MEAN CORPUSCULAR HGB CONC 31.6 G/DL (33.0-37.0); MEAN CORPUSCULAR VOLUME 89.3 FL (81.0-99.0); PLATELET COUNT 268 /CUMM (130-400); RBC DISTRIBUTION WIDTH 15.3 % (11.5-14.5); RED BLOOD CELL CT 4.04 /CUMM (4.20-5.40)
[2016-11-24 06:44] VITALS: BP 134/78
--- NOTE | 2016-11-24 07:17 | PN- Housestaff ---
See Addendum ANAHI MORGAN,[facility] 11/24/16 0716: Subjective Follow-up For: Community Acqired Pneumonia Chronic Back Pain Right Arm Weakness Review of Systems Constitutional: Reports: see HPI. Objective Last 24 Hrs of Vital Signs/I&O Vital Signs Date Time Temp Pulse Resp B/P Pulse O2 O2 Flow FiO2 Ox Delivery Rate 11/24 1038 97.4 80 20 144/83 98 11/24 1000 97.0 90 22 128/80 11/24 1000 97.0 90 22 128/80 11/24 0729 97.0 90 22 128/80 96 Room Air 11/24 0719 90 11/24 0644 95.9 90 18 134/78 92 Room Air 11/24 0532 95.9 90 18 134/78 92 Room Air 11/24 0428 97 Nasal 2.0L Cannula 11/23 2345 99.7 104 18 143/78 97 Nasal 2.0L Cannula 11/23 2334 99.7 104 18 143/78 97 Room Air 11/23 2316 118 172/92 11/23 1915 100.2 106 16 147/68 99 Nasal 2.0L Cannula 11/23 1730 99 155/92 11/23 1725 100.5 99 16 155/92 100 Nasal 2.0L Cannula 11/23 1542 100 182/92 11/23 1432 99.6 100 16 182/92 97 Nasal 2.0L Cannula 11/23 1305 100.0 103 16 175/94 100 Nasal 4.0L Cannula 11/23 1200 Nasal 2.0L Cannula 11/23 1139 100.3 112 18 186/96 83 Room Air Intake & Output 11/24 1600 11/24 0800 11/24 0000 Intake Total 500 Output Total 250 Balance 250 Intake, Oral 500 Output, Urine 250 Patient 81.193 kg Weight Physical Exam General Appearance: Alert, Oriented X3, Cooperative, No Acute Distress Skin: No Rashes, No Breakdown, No Significant Lesion HEENT: Atraumatic, PERRLA, EOMI, Mucous Membr. moist/pink Neck: Supple Cardiovascular: Regular Rate, Normal S1, Normal S2, No Murmurs Lungs: Clear to Auscultation, Normal Air Movement Abdomen: Normal Bowel Sounds, Soft, No Tenderness Neurological: Normal Gait, Normal Speech, Strength at 5/5 X4 Ext, Normal Tone, Sensation Intact, Cranial Nerves 3-12 NL, Reflexes 2+ Extremities: No Clubbing, No Cyanosis, No Edema, Normal Pulses Other Physical Findings: Spine: Lower back tenderness Assessment/Plan Assessment: Ms. Hess is 31-year-old female with a past medical history of recent cervical spinal surgery (C3-C6 instrumental fusion )at [place] (09/2016), hypertension, peripheral neuropathy, chronic back pain (on penitentiary Valium 10 mg tid and Oxycodone 30 mg 5x/day) secondary to disc herniation, osteoarthritis, spinal stenosis presents to the ER with chief complaint of right-sided weakness after waking up from a nap on day of admission 11/23/16. CTA chest 11/23/16 IMPRESSION: The study is nondiagnostic for pulmonary embolus. The degree of enhancementof the pulmonary vessels is insufficient. Extensive bilateral areas of consolidation greatest in the left lung. This may represent pneumonia V/Q scan 11/23/16 IMPRESSION: Triple matched defect left lung on ventilation, perfusion with consolidation on CTA chest suggestive of low probability. There is normal ventilation and perfusion of right lung except for right post posterior basal segment decreased perfusion and ventilation corresponding to small consolidation seen on the CTA chest again suggestive of low probability for PE. Overall there is low probability for PE. CT Head and Cervical scan 11/23/16 IMPRESSION: 1. There is no evidence of a recent intracranial hemorrhage. 2. No acute infarct. 3. Evidence of extensive previous cervical instrumentation and decompression. Canal contents are unevaluable. No definite acute cervical fracture or subluxation. Abnormalities in the lung apices are not fully evaluated or included. Problem list #Acute hypoxic respiratory failure -On arrival to ED patient desats to 83% on room air -On arrival patient had temperature of 100.3 and tachycardia 112 -In the light of Wells score for PE of 6 which indicates moderate risk of PE, PE where excluded by CTA (poor quality) and VQ scan -CTA showed extensive bilateral areas of consolidation greatest in the left lung which may represent pneumonia -Will treat for community-acquired pneumonia given CT findings, white blood cell of 17 and history of fever -Patient has history of penicillin (anaphylaxis) -Continue levofloxacin 500 mg by mouth daily DAY#2 -Patient denied cough, shortness of breath, fever, chills -Patient is saturating well on room air today, rest of vital signs are stable -Will obtain pulse oximetry on rest and ambulation on room air -Urine Legionella and Streptococcus antigen are pending -Follow-up CBC and blood culture #Right-sided numbness -Recent history of cervical spinal surgery (C3-C6 instrumental fusion )at [place] ( 09/2016) -No focal neurological deficit either symptoms, signs or imaging -Patient is able to ambulate to bathroom without assistance -Patient denied urine or stool incontinence #Chronic back pain -Back pain was patient's main complaint this morning -She has been on buttermaker helper Valium 10 mg tid and Oxycodone 30 mg 5x/day -Continu home medications -Bowel regimen #Hypertension -Continue amlodipine 5 mg daily -Lisinopril 10 mg daily -Lasix 20 mg daily #Peripheral neuropathy -Continue Lyrica 75 mg 3 times a day by mouth #Insomnia Continue trazodone 50 mg at bedtime #Depression Continue aripiprazole 10 mg by mouth daily #History of smoking -Nicotine patch 14 mg daily DVT prophylaxis Heparin subcutaneous Diet Heart healthy CODE STATUS Full code Consultation PT, OT Problem List: 1. Back pain 2. Neuropathy 3. Community acquired pneumonia Pain Ratin Pain Location: Low back pain Pain Goal: Pain 4 or less Pain Plan: Tramadol 50 mg every 6 when necessary Ibuprofen 600 mg every 4 when necessary Oxycodone 30 mg 5 times by mouth Diazepam 10 mg 3 times a day when necessary Tomorrow's Labs & Rationales: CBC Consulting Request: Consulting Specialty: Neurosurgery KASHMIR FERRERA MD 11/24/16 7717: Attending MD Review Statement Attending Statement Attending MD Statement: examined this patient, discuss w/resident/PA/PLUG PASTER, agreed w/resident/PA/PLUG PASTER, reviewed EMR data (avail), discussed with nursing, amended to note Attending Assessment/Plan: The patient was seen and discussed with house staff. Agree with the plan of care as outlined. Oxygenation improved.
[2016-11-24 14:00] VITALS: BP 106/53
--- NOTE | 2016-11-24 14:09 | Patient Discharge Instructions ---
Discharge Instructions General Discharge Information You were seen/treated for: -Right arm weakness -Pneumonia Special Instructions: -Please follow-up with your primary care physician within 1 week after discharge -Follow up with your neurosurgeon after discharge Acute Coronary Syndrome Inclusion Criteria At DC or during hospital stay patient has or had the following: ACS DIAGNOSIS No Discharge Core Measures Meds if any: Prescribed or Continued at Discharge Meds if any: NOT Prescribed or Continued at Discharge Congestive Heart Failure Inclusion Criteria At DC or during hospital stay patient has or had the following: CHF DIAGNOSIS No Discharge Core Measures Meds if any: Prescribed or Continued at Discharge Meds if any: NOT Prescribed or Continued at Discharge Cerebrovascular accident Inclusion Criteria At DC or during hospital stay patient has or had the following: CVA/TIA Diagnosis No Discharge Core Measures Meds if any: Prescribed or Continued at Discharge Meds if any: NOT Prescribed or Continued at Discharge Venous thromboembolism Inclusion Criteria VTE Diagnosis No VTE Type NONE VTE Confirmed by (Test) NONE Discharge Core Measures - Per Current guidelines, there needs to be overlap - treatment for the first 5 days of Warfarin therapy. - If discharged on Warfarin prior to 5 days of - overlap therapy, the patient will need to be - assessed for post discharge needs including - *Post discharge parental anticoagulation - *Warfarin and/or parental anticoagulation education - *Follow up date to check INR post discharge At least 5 days overlap therapy as Inpatient Yes Meds if any: Prescribed or Continued at Discharge Note: Overlap Therapy is Warfarin and Anticoagulant Meds if any: NOT Prescribed or Continued at Discharge
[2016-11-24 20:05] VITALS: BP 120/70
[2016-11-24 21:21] VITALS: BP 140/80
[2016-11-25 06:47] VITALS: BP 120/90
--- NOTE | 2016-11-25 07:17 | PN- Housestaff ---
ANAHI MORGAN,[facility] 11/25/16 0717: Subjective Follow-up For: Community Acqired Pneumonia Chronic Back Pain Right Arm Weakness Subjective: Patient was seen and examined this morning, vital signs are stable overnight events reported by the nurse of the patient. Patient has no new complaint. Review of Systems Constitutional: Reports: see HPI. Objective Last 24 Hrs of Vital Signs/I&O Vital Signs Date Time Temp Pulse Resp B/P Pulse O2 O2 Flow FiO2 Ox Delivery Rate 11/25 1422 97.9 95 20 100/80 95 Room Air 11/25 1310 Room Air 11/25 0920 102 120/90 11/25 0920 102 120/90 11/25 0647 98.6 102 20 120/90 92 Room Air 11/25 0000 Room Air 11/24 2121 98.2 95 20 140/80 98 11/24 2004 98.0 80 19 120/70 94 Intake & Output 11/25 1600 11/25 0800 11/25 0000 Intake Total 480 270 250 Output Total Balance 480 270 250 Intake, IV 20 Intake, Oral 480 250 250 Number 0 Bowel Movements Physical Exam General Appearance: Alert, Oriented X3, Cooperative, No Acute Distress Skin: No Rashes, No Breakdown, No Significant Lesion HEENT: Atraumatic, PERRLA, EOMI, Mucous Membr. moist/pink Neck: Supple Cardiovascular: Regular Rate, Normal S1, Normal S2, No Murmurs Lungs: Clear to Auscultation, Normal Air Movement Abdomen: Normal Bowel Sounds, Soft, No Tenderness Neurological: Normal Gait, Normal Speech, Strength at 5/5 X4 Ext, Normal Tone, Sensation Intact, Cranial Nerves 3-12 NL, Reflexes 2+ Extremities: No Clubbing, No Cyanosis, No Edema, Normal Pulses Assessment/Plan Assessment: Ms. Hess is 31-year-old female with a past medical history of recent cervical spinal surgery (C3-C6 instrumental fusion )at [place] (09/2016), hypertension, peripheral neuropathy, chronic back pain (on senior care Valium 10 mg tid and Oxycodone 30 mg 5x/day) secondary to disc herniation, osteoarthritis, spinal stenosis presents to the ER with chief complaint of right-sided weakness after waking up from a nap on day of admission 11/23/16. CTA chest 11/23/16 IMPRESSION: The study is nondiagnostic for pulmonary embolus. The degree of enhancementof the pulmonary vessels is insufficient. Extensive bilateral areas of consolidation greatest in the left lung. This may represent pneumonia V/Q scan 11/23/16 IMPRESSION: Triple matched defect left lung on ventilation, perfusion with consolidation on CTA chest suggestive of low probability. There is normal ventilation and perfusion of right lung except for right post posterior basal segment decreased perfusion and ventilation corresponding to small consolidation seen on the CTA chest again suggestive of low probability for PE. Overall there is low probability for PE. CT Head and Cervical scan 11/23/16 IMPRESSION: 1. There is no evidence of a recent intracranial hemorrhage. 2. No acute infarct. 3. Evidence of extensive previous cervical instrumentation and decompression. Canal contents are unevaluable. No definite acute cervical fracture or subluxation. Abnormalities in the lung apices are not fully evaluated or included. Problem list #Acute hypoxic respiratory failure -On arrival to ED patient desats to 83% on room air -On arrival patient had temperature of 100.3 and tachycardia 112 -In the light of Wells score for PE of 6 which indicates moderate risk of PE, PE where excluded by CTA (poor quality) and VQ scan -CTA showed extensive bilateral areas of consolidation greatest in the left lung which may represent pneumonia -Will treat for community-acquired pneumonia given CT findings, white blood cell of 17 and history of fever -Patient has history of penicillin allergy (anaphylaxis) -Continue levofloxacin 500 mg by mouth daily DAY#3, will finish course of 7 days antibiotic -Patient denied cough, shortness of breath, fever, chills -Patient is saturating well on room air today, rest of vital signs are stable -Blood culture negative so far #Right-sided numbness -Recent history of cervical spinal surgery (C3-C6 instrumental fusion )at [place] ( 09/2016) -No focal neurological deficit either symptoms, signs or imaging -Patient is able to ambulate without assistance -Patient denied urine or stool incontinence #Chronic back pain -Back pain was patient's main complaint this morning -She has been on terminal operator Valium 10 mg tid and Oxycodone 30 mg 5x/day -Continu home medications -Bowel regimen #Hypertension -Continue amlodipine 5 mg daily -Lisinopril 10 mg daily -Lasix 20 mg daily #Peripheral neuropathy -Continue Lyrica 75 mg 3 times a day by mouth #Insomnia -Continue trazodone 50 mg at bedtime #Depression -Continue aripiprazole 10 mg by mouth daily #History of smoking -Nicotine patch 14 mg daily DVT prophylaxis Heparin subcutaneous Diet Heart healthy CODE STATUS Full code Consultation PT, OT She does for discharge today to home with home services Problem List: 1. Community acquired pneumonia Pain Ratin Pain Location: Chronic Back pain Pain Goal: Pain 4 or less Pain Plan: See medication Tomorrow's Labs & Rationales: None Consulting Request: Consulting Specialty: Neurosurgery KASHMIR FERRERA MD 11/25/16 2140: Attending MD Review Statement Attending Statement Attending MD Statement: examined this patient, discuss w/resident/PA/INTERNET DEVELOPER, agreed w/resident/PA/INTERNET DEVELOPER, reviewed EMR data (avail), discussed with nursing, discussed with case mgmt, amended to note Attending Assessment/Plan: The patient was seen and discussed with house staff. Agree with the plan of care as above.
[2016-11-25] MEDS ORDERED: LEVAQUIN500 M1 PO ×2 (13:40→13:57)
[2016-11-25 14:22] VITALS: BP 100/80
--- NOTE | 2016-11-25 18:18 | Discharge Summary ---
Visit Information Visit Dates Admission Date: 11/23/16 Discharge Date: 11/25/16 Hospital Course Course Attending Physician: KASHMIR FERRERA MD Primary Care Physician: [place] MORGAN,MED Huerta Consulting Request: Consulting Specialty: Neurosurgery Hospital Course: Ms. Hess is 31-year-old female with a past medical history of recent cervical spinal surgery (C3-C6 instrumental fusion )at [place] (09/2016), hypertension, peripheral neuropathy, chronic back pain (on shelter Valium 10 mg tid and Oxycodone 30 mg 5x/day) secondary to disc herniation, osteoarthritis, spinal stenosis presents to the ER with chief complaint of right-sided weakness after waking up from a nap on day of admission 11/23/16. On admission Vital signs Blood pressure 186/96, pulse 112, respiratory rate 18, MAXIMUM TEMPERATURE 100.3 saturating 83% on room air. On physical exam Alert and oriented 3, in no acute distress s HEENT revealed PERRLA, dry mucous membranes. She has a cervical collar in place. Cardiovascular exam revealed normal S1, S2, no murmurs rubs Respiratory exam is pertinent for chest was here to auscultation bilaterally Abdominal exam is benign with abdomen soft, nontender, nondistended with bowel sounds heard in all 4 quadrants, and a scar Examination of the lower extremities did not reveal any edema Neuro exam is grossly unremarkable with cranial nerves II through XII grossly intact, strength 5 out of 5 bilaterally in upper extremities, 4 out of 5 in lower extremities bilaterally, sensation intact, reflexes 2+ in all 4 extremities. Labs pertinent for leukocytosis with a white blood cell count of 14,100, 5 bands and H&H of 12.8/39.2, normal MCV of 89 and a platelet count of 295,000. Serum chemistries revealed a sodium of 144, potassium of 3.4, bicarbonate of 29, anion gap of 10, BUN:18, creatinine of 0.9, glucose elevated to 114. LFTs revealed AST/ALT of 19/21, alkaline phosphatase of 75, total bili is 0.4. First set of troponin negative at 0.05. INR 1.24, and a d-dimer elevated to 87. UA was hazy , with trace amount of proteinuria, moderate amount of epithelial cells, bacteriuria and moderate amount of hemoglobin. CTA chest 11/23/16 IMPRESSION: The study is nondiagnostic for pulmonary embolus. The degree of enhancementof the pulmonary vessels is insufficient. Extensive bilateral areas of consolidation greatest in the left lung. This may represent pneumonia V/Q scan 11/23/16 IMPRESSION: Triple matched defect left lung on ventilation, perfusion with consolidation on CTA chest suggestive of low probability. There is normal ventilation and perfusion of right lung except for right post posterior basal segment decreased perfusion and ventilation corresponding to small consolidation seen on the CTA chest again suggestive of low probability for PE. Overall there is low probability for PE. CT Head and Cervical scan 11/23/16 IMPRESSION: 1. There is no evidence of a recent intracranial hemorrhage. 2. No acute infarct. 3. Evidence of extensive previous cervical instrumentation and decompression. Canal contents are unevaluable. No definite acute cervical fracture or subluxation. Abnormalities in the lung apices are not fully evaluated or included. Problem list #Acute hypoxic respiratory failure -On arrival to ED patient desats to 83% on room air -On arrival patient had temperature of 100.3 and tachycardia 112 -In the light of Wells score for PE of 6 which indicates moderate risk of PE, PE where excluded by CTA (poor quality) and VQ scan -CTA showed extensive bilateral areas of consolidation greatest in the left lung which may represent pneumonia -Patient was treated for community-acquired pneumonia given CT findings, white blood cell of 17 and history of fever -Patient denied cough, shortness of breath -Patient is saturating well on room air on day of discharge, rest of vital signs were stable -Patient has history of penicillin allergy (anaphylaxis) -Levofloxacin 500 mg by mouth daily, finish course of 7 days antibiotic -Blood culture negative so far #Right-sided numbness -Recent history of cervical spinal surgery (C3-C6 instrumental fusion )at [place] ( 09/2016) -No focal neurological deficit either symptoms, signs or imaging -Patient was able to ambulate without assistance -Patient denied urine or stool incontinence #Chronic back pain -She has been on senior living Valium 10 mg tid and Oxycodone 30 mg 5x/day -Continu home medications -Bowel regimen #Hypertension -Continue amlodipine 5 mg daily -Lisinopril 10 mg daily -Lasix 20 mg daily #Peripheral neuropathy -Continue Lyrica 75 mg 3 times a day by mouth #Insomnia -Continue trazodone 50 mg at bedtime #Depression -Continue aripiprazole 10 mg by mouth daily #History of smoking -Nicotine patch DVT prophylaxis Heparin subcutaneous Diet Heart healthy CODE STATUS Full code Consultation PT, OT Patient was discharged with home services Allergies: Coded Allergies: acetaminophen (From TYLENOL) (Severe, STATES HER THROAT CLOSES UP 11/23/16) Penicillins (ANAPHYLAXIS 05/02/16) naproxen (ANAPHYLAXIS 05/02/16) Disposition Summary Disposition Principal Diagnosis: Community-acquired pneumonia Additional Diagnosis: Chronic back pain Discharge Disposition: home health services Discharge Instructions General Discharge Information Code Status: Full Code Patient's Diet: Heart healthy diet Patient's Activity: As tolerated Follow-Up Instructions/Appts: -Please follow-up with your primary care physician within 1 week after discharge -Follow up with your neurosurgeon after discharge Medications at Discharge Discharge Medications: Continue taking these medications: Furosemide (Lasix) 20 MG TABLET 1 Tablet ORAL DAILY Qty = 2 Comments: Last Taken: 11/25/16 Time: 10AM Oxycodone HCl (Oxycodone HCl) 30 MG TABLET 1 Tablet ORAL 5 TIMES A DAY Comments: Last Taken:11/25/16 Time: 2 PM Pregabalin (Lyrica) 75 MG CAPSULE 75 Milligram ORAL THREE TIMES DAILY Comments: Last Taken: 11/25/16 Time: 10AM Diazepam (Valium) 10 MG TABLET 10 Milligram ORAL THREE TIMES DAILY as needed for DJD Comments: Last Taken: 11/25/16 Time: 12 PM Lisinopril (Lisinopril) 10 MG TABLET 10 Milligram ORAL Every Day Comments: Last Taken: 11/25/16 Time: 10AM Folic Acid (Folic Acid) 1 MG TABLET 1 Tablet ORAL DAILY Qty = 30 Comments: Last Taken: 11/25/16 Time: 10AM Thiamine HCl (B-1) 100 MG TABLET 1 Tablet ORAL DAILY Qty = 30 Comments: Last Taken: 11/25/16 Time: 10AM Trazodone HCl (Trazodone HCl) 50 MG TABLET 1 Tablet ORAL Every night Qty = 30 Comments: NOT GIVEN IN HOSPITAL Sennosides/Docusate Sodium (Docusate Sodium-Senna Tablet) 8.6 MG-50 MG TABLET 2 Tablet ORAL TWICE DAILY Qty = 60 Comments: NOT GIVEN IN HOSPITAL Aripiprazole (Abilify) 10 MG TABLET 1 Tablet ORAL DAILY Qty = 30 Comments: Last Taken:11/25/16 Time: 10 AM Diclofenac Sodium (Diclofenac Sodium) 75 MG TABLET.DR 1 Tablet ORAL TWICE DAILY Comments: NOT GIVEN IN HOSPITAL Amlodipine Besylate (Amlodipine Besylate) 5 MG TABLET 1 Tablet ORAL DAILY Days = 30 Comments: Last Taken: 11/25/16 Time: 10AM Start taking the following new medications: Levofloxacin (Levaquin) 500 MG TABLET 1 Tablet ORAL DAILY Days = 4 No Refills Comments: Last Taken: 11/25/16 Time:. 12 PM Copies To: [place] MORGAN,MED Huerta Attending MD Review Statement Documenting Attending: KASHMIR FERRERA MD Other Findings: The patient was seen and agree with the plan of care upon discharge.
== END 2016-11-25 15:00 | disposition home health service (06) | DRG 139 ==
LOC: ENRESERVTM → ENRESERVDT → ERH 11:23 → 2NA 15:15 → ERHI 15:15 → ENPENDDIS 15:15 → 2NA 11-24 19:17
PROVIDERS: Internal Medicine Infectious Disease; Physician Assistant Medical; ADMIT Internal Medicine
DX: J18.9 Pneumonia, unspecified organism (principal); J96.01 Acute respiratory failure with hypoxia; G62.9 Polyneuropathy, unspecified; M50.20 Other cervical disc displacement, unspecified cervical region; F17.210 Nicotine dependence, cigarettes, uncomplicated; I10 Essential (primary) hypertension; J45.909 Unspecified asthma, uncomplicated; M19.90 Unspecified osteoarthritis, unspecified site; G47.00 Insomnia, unspecified; R53.1 Weakness; F32.9 Major depressive disorder, single episode, unspecified; M48.02 Spinal stenosis, cervical region; M48.06 Spinal stenosis, lumbar region; M51.26 Other intervertebral disc displacement, lumbar region
CPT/HCPCS: 2NASP; ERO; 78582; 80307; 81001; 81025; 82436; 87040; 87070; 87389; 87449; 87450; 93005; 93010; 96365; 96366; 96375; 97116-GO; 97161-GP; 97166-GO; A9540; A9558; J0131; J0360; J0401; J0456; J0696; J1644; J2310; J3490; J7060

== ENCOUNTER 2016-12-10 11:09 | Emergency (ER) | payer OTHER ==
[~2016-12-10] VITALS: Ht 154.9 cm; Wt 78.9 kg
[~2016-12-10 11:09] MED LIST changes: +ABILIFY10 M1 PO; +B-1100 MG PO; +DICLOFENAC SODI75 M2 PO; +DOCUSATE SODIU1 EACH PO; +FOLIC ACID1 M1 PO; +LEVAQUIN500 M1 PO; +TRAZODONE HCL50 M1 PO
--- NOTE | 2016-12-10 12:07 | ED GENERAL ADULT ---
History of Present Illness General Chief Complaint: General Adult Stated Complaint: SWELLING IN LEGS, LBP Source: patient Exam Limitations: no limitations Vital Signs & Intake/Output Vital Signs & Intake/Output Vital Signs Date Time Temp Pulse Resp B/P Pulse O2 O2 Flow FiO2 Ox Delivery Rate 12/10 1407 97.9 72 18 142/84 97 12/10 1222 98 Room Air 12/10 1115 99.3 100 18 148/90 99 Room Air Allergies Coded Allergies: acetaminophen (From TYLENOL) (Severe, STATES HER THROAT CLOSES UP 11/23/16) Penicillins (ANAPHYLAXIS 05/02/16) naproxen (ANAPHYLAXIS 05/02/16) Reconcile Medications Amlodipine Besylate 5 MG TABLET 1 TAB PO DAILY HTN (Reported) Aripiprazole (Abilify) 10 MG TABLET 1 TAB PO DAILY DEPRESSION (Reported) Diazepam (Valium) 10 MG TABLET 10 MG PO TID PRN DJD (Reported) Diclofenac Sodium 75 MG TABLET.DR 1 TAB PO BID PAIN (Reported) Folic Acid 1 MG TABLET 1 TAB PO DAILY SUPPLEMENT (Reported) Furosemide (Lasix) 20 MG TABLET 1 TAB PO DAILY EDEMA Furosemide (Lasix) 20 MG TABLET 1 TAB PO DAILY SWELLING Lisinopril 10 MG TABLET 10 MG PO D HTN (Reported) Oxycodone HCl 30 MG TABLET 1 TAB PO 5 TIMES A DAY PAIN (Reported) Pregabalin (Lyrica) 100 MG CAPSULE 1 CAP PO TID NEUROPATHY (Reported) Sennosides/Docusate Sodium (Docusate Sodium-Senna Tablet) 8.6 MG-50 MG TABLET 2 TAB PO BID CONSTIPATION (Reported) Thiamine HCl (B-1) 100 MG TABLET 1 TAB PO DAILY SUPPLEMENT (Reported) Trazodone HCl 50 MG TABLET 1 TAB PO QPM SLEEP (Reported) Triage Note: PT STATES THAT SHE HAS HISTORY OF CHRONIC BACK/NECK PROBLEMS AND THAT SHE HAD NECK SURGERY IN SEPTEMBER. PT STATES THAT SHE HAS NOTED THAT HER BILATERAL LOWER LEGS HAVING BEEN SWOLLEN FOR THE PAST 3 DAYS. HER NURSE CAME OUT TODAY AND CALLED PATIENTS DR AT [facility] AND PT WAS TOLD TO GO TO ER. PT TOOK HER PRESCRIBED OXYCODONE FOR THE PAIN PRIOR TO COMING TO THE ER Triage Nurses Notes Reviewed? yes Onset: Abrupt Duration: day(s): (3) Timing: recent history Injury Environment: home Severity: mild Associated Symptoms: LE EDEMA : No Patient currently breastfeeds: No HPI: 31 year old female s/p cervical fusion in September who presents with heaviness and pain with swelling to bilateral legs x 3 days. No numbness and tingling. Denies any trauma. Hospitalized two weeks ago for pneumonia and hypoxia. While in the hospital she was on furosemide but was not sent home with the prescriptions. No fever or chills. Past History Travel History Traveled to [place] past 21 day No Medical History Any Pertinent Medical History? 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), degen joint disease, osteoarthritis, sciatica, spinal stenosis ( cervical and lumbar) Psychiatric: NONE Endocrine: NONE Blood Disorders: NONE Cancer(s): NONE EATING DISORDER SPECIALIST/Reproductive: POLYCYSTIC OVARIES History of MRSA: No History of VRE: No History of CDIFF: No Influenza Vaccine: 05/27/16 Tetanus Vaccine: 05/02/16 Surgical History Surgical History: , BILATERAL MENISCUS, cervical fusion september 2016 Psychosocial History Who do you live with Patient/Self Services at Home None What is your primary language Amharic Tobacco Use: Never used ETOH Use: denies use Illicit Drug Use: denies illicit drug use Family History Family History, If Any: Relation not specified for: *No pertinent family history Hx Contributory? No Review of Systems Review of Systems Constitutional: Denies: chills, fever. EENTM: Reports: no symptoms. Respiratory: Denies: cough, short of breath. Cardiovascular: Reports: peripheral edema. Denies: chest pain, palpitations. GI: Reports: bloating. Denies: abdominal pain, constipation, nausea, vomiting. Genitourinary: Denies: dysuria. Musculoskeletal: Reports: no symptoms. Skin: Reports: no symptoms. Neurological/Psychological: Reports: no symptoms. Hematologic/Endocrine: Denies: bruising, bleeding, polyuria, polydipsia. Immunologic/Allergic: Denies: splenectomy. All Other Systems: Reviewed and Negative Physical Exam Physical Exam General Appearance: well developed/nourished, alert, awake, mild distress Head: atraumatic, normal appearance Eyes: Bilateral: normal appearance, PERRL, EOMI. Ears, Nose, Throat: normal pharynx, normal ENT inspection, hearing grossly normal Neck: normal inspection, supple, full range of motion Respiratory: normal breath sounds, chest non-tender, no respiratory distress Cardiovascular: regular rate/rhythm Peripheral Pulses: 2+ radial (R), 2+ radial (L) Gastrointestinal: normal bowel sounds, soft, non-tender Extremities: pedal edema (1+ bilaterL) Neurologic/Psych: no motor/sensory deficits, awake, alert, oriented x 3 Skin: intact, normal color, warm/dry Core Measures ACS in differential dx? No CVA/TIA Diagnosis: No Severe Sepsis Present: No Septic Shock Present: No Progress Differential Diagnoses I considered the following diagnoses in my evaluation of the patient: [dvt, dependent edema, fluid overload, jonathon, chf] Plan of Care: Orders Procedure Date/time Status URINE DRUGS OF ABUSE 12/10 1209 Complete URINE 12/10 1209 Complete URINALYSIS 12/10 1209 Complete THYROID STIMULATING HORMONE 12/10 1209 Complete FREE T4 12/10 1209 Complete COMPREHENSIVE METABOLIC PANEL 12/10 1209 Complete CBC WITHOUT DIFFERENTIAL 12/10 1209 Complete EKG 12/10 1209 Active Laboratory Tests 12/10/16 1429: Urine Opiates Screen 1608.00, Methadone Screen < 40, Barbiturate Screen < 60, Ur Phencyclidine Scrn < 6.00, Amphetamines Screen < 100, U Benzodiazepines Scrn > 800.0 H, Urine Cocaine Screen < 50, Urine Cannabis Screen > 80.00 H, Urinalysis MOD H, Urine Color YEL, Urine Clarity HAZY H, Urine pH 7.0, Ur Specific Florence 1.020, Urine Protein 30 H, Urine Ketones NEG, Urine Nitrite NEG, Urine Bilirubin NEG, Urine Urobilinogen 0.2, Ur Leukocyte Esterase NEG, Ur Microscopic SEDIMENT EXAMINED, Urine RBC 1-3, Ur Epithelial Cells FEW, Urine Crystals RARE CA OX, Urine Hemoglobin SMALL H, Urine Glucose NEG, Urine Test NEGATIVE 12/10/16 1225: Anion Gap 7, Estimated GFR > 60, BUN/Creatinine Ratio 20.0, Glucose 97, Calcium 9.8, Total Bilirubin 0.4, AST 53 H, ALT 47, Alkaline Phosphatase 59, Total Protein 7.5, Albumin 4.2, Globulin 3.3, Albumin/Globulin Ratio 1.3, TSH 0.362, Free T4 1.40, CBC w Diff NO MAN DIFF REQ, RBC 3.68 L, MCV 88.2, MCH 28.3, RDW 15.7 H, MPV 6.9 L, Gran % 66.6, Lymphocytes % 21.2, Monocytes % 7.2, Eosinophils % 4.4, Basophils % 0.6, Absolute Granulocytes 3.3, Absolute Lymphocytes 1.0 L, Absolute Monocytes 0.4, Absolute Eosinophils 0.2, Absolute Basophils 0, PUBS MCHC 32.1 L Diagnostic Imaging: Viewed by Me: Ultrasound. Discussed w/RAD: Ultrasound. Initial ED EKG: NSR Comments: PATIENT: BEVERLY HARDIN PRESENT AGE: 31 PATIENT ACCOUNT NO: [id number] : 83 LOCATION: [facility] ORDERING PHYSICIAN: SAMANTHA CORDOVA MD SERVICE DATE: 12/10/16 EXAM TYPE: US - US-EXT BILAT VENOUS DOPPLER EXAMINATION: US TRIPLEX LOWER EXTREMITY, BILATERAL CLINICAL INFORMATION: Bilateral lower extremity swelling. COMPARISON: None. TECHNIQUE: Color-flow triplex imaging with spectral analysis and compression Doppler were performed on the bilateral lower extremities. FINDINGS: Respiratory variation, normal compression and augmented flow are noted throughout the bilateral lower extremities. The visualized common femoral vein, greater saphenous vein, femoral vein, profunda femoral vein, popliteal vein and visualized mid calf venous segments show no evidence of deep venous thrombosis. There is a 3.8 x 0.6 x 2.0 cm right popliteal fossa De Jesus's cyst. IMPRESSION: 1. Normal triplex scan without evidence of deep venous thrombosis involving the bilateral lower extremities. 2. A right popliteal fossa De Jesus's cyst is seen. DICTATED BY: SUGEY ROGERS MD DATE/TIME DICTATED:12/10/161319 VITICULTURIST:NUPUR DATE/TIME TRANSCRIBED:12/10/161319 CONFIDENTIAL, DO NOT COPY WITHOUT APPROPRIATE AUTHORIZATION. <Electronically signed in Other Vendor System> SIGNED BY: SUGEY ROGERS MD 12/10/161324 Departure Departure Time of Disposition: 1518 Disposition: HOME OR SELF CARE Condition: Stable Clinical Impression Primary Impression: Dependent edema Secondary Impressions: Synovial cyst of popliteal space [De Jesus], right knee Referrals: MONTANA MORGAN,MED Huerta (PCP/Family) Additional Instructions: Please take the Lasix as directed and follow-up with her primary care doctor regarding the swelling in her legs and the protein in her urine. Return to the ER for any changing or worsening symptoms. There is no evidence of clot in her legs. You do have a cyst behind her right leg. Departure Forms: Customer Survey General Discharge Information Prescriptions: Current Visit Scripts Furosemide (Lasix) 1 TAB PO DAILY #5 TAB Critical Care Note Critical Care Note Critical Care Time: non-applicable
[2016-12-10 12:33] LABS: ABSOLUTE BASOPHIL COUNT 0 /CUMM (0.0-0.2); ABSOLUTE EOSINOPHIL COUNT 0.2 /CUMM (0.0-0.7); ABSOLUTE GRANULOCYTE CT 3.3 /CUMM (1.4-6.5); ABSOLUTE MONOCYTE COUNT 0.4 /CUMM (0.10-0.60); BASOPHIL % 0.6 % (0.0-2.0); EOSINOPHIL % 4.4 % (0-5); GRANULOCYTE % 66.6 % (42.2-75.2); HEMATOCRIT 32.5 % (37-47); MEAN CORPUSCULAR HGB 28.3 PG (27.0-31.0); MEAN CORPUSCULAR HGB CONC 32.1 G/DL (33.0-37.0); MEAN CORPUSCULAR VOLUME 88.2 FL (81.0-99.0); MEAN PLATELET VOLUME 6.9 FL (7.4-10.4); PLATELET COUNT 315 /CUMM (130-400); RBC DISTRIBUTION WIDTH 15.7 % (11.5-14.5); RED BLOOD CELL CT 3.68 /CUMM (4.20-5.40); WHITE BLOOD CELL COUNT 4.9 /CUMM (4.8-10.8)
--- NOTE | 2016-12-10 13:25 | ULTRASOUND REPORT ---
EXAMINATION: US TRIPLEX LOWER EXTREMITY, BILATERAL CLINICAL INFORMATION: Bilateral lower extremity swelling. COMPARISON: None. TECHNIQUE: Color-flow triplex imaging with spectral analysis and compression Doppler were performed on the bilateral lower extremities. FINDINGS: Respiratory variation, normal compression and augmented flow are noted throughout the bilateral lower extremities. The visualized common femoral vein, greater saphenous vein, femoral vein, profunda femoral vein, popliteal vein and visualized mid calf venous segments show no evidence of deep venous thrombosis. There is a 3.8 x 0.6 x 2.0 cm right popliteal fossa De Jesus's cyst. IMPRESSION: 1. Normal triplex scan without evidence of deep venous thrombosis involving the bilateral lower extremities. 2. A right popliteal fossa De Jesus's cyst is seen.
[2016-12-10] MEDS ORDERED: LASIX20 M1 PO (15:20)
[2016-12-10 15:33] VITALS: BP 132/84
== END 2016-12-10 16:20 ==
LOC: ERH 11:09
PROVIDERS: Emergency Medicine
DX: M71.21 Synovial cyst of popliteal space [Baker], right knee (principal); R60.0 Localized edema
CPT/HCPCS: 80307; 81001; 81025; 93005; 93010; 93970

== ENCOUNTER 2016-12-20 02:38 | Emergency (ER) | payer OTHER ==
--- NOTE | 2016-12-20 02:46 | ED UPPER/LOWER EXTREMITY COMPL ---
History of Present Illness General Chief Complaint: Lower Extremity Problems Stated Complaint: R KNEE PAIN Source: patient Exam Limitations: no limitations Vital Signs & Intake/Output Vital Signs & Intake/Output Vital Signs Date Time Temp Pulse Resp B/P Pulse O2 O2 Flow FiO2 Ox Delivery Rate 12/20 0249 83 20 172/110 100 Room Air Allergies Coded Allergies: acetaminophen (From TYLENOL) (Severe, STATES HER THROAT CLOSES UP 11/23/16) Penicillins (ANAPHYLAXIS 05/02/16) naproxen (ANAPHYLAXIS 05/02/16) Reconcile Medications Amlodipine Besylate 5 MG TABLET 1 TAB PO DAILY HTN (Reported) Aripiprazole (Abilify) 10 MG TABLET 1 TAB PO DAILY DEPRESSION (Reported) Diazepam (Valium) 10 MG TABLET 10 MG PO TID PRN DJD (Reported) Diclofenac Sodium 75 MG TABLET.DR 1 TAB PO BID PAIN (Reported) Folic Acid 1 MG TABLET 1 TAB PO DAILY SUPPLEMENT (Reported) Furosemide (Lasix) 20 MG TABLET 1 TAB PO DAILY EDEMA Furosemide (Lasix) 20 MG TABLET 1 TAB PO DAILY SWELLING Lisinopril 10 MG TABLET 10 MG PO D HTN (Reported) Oxycodone HCl 30 MG TABLET 1 TAB PO 5 TIMES A DAY PAIN (Reported) Pregabalin (Lyrica) 100 MG CAPSULE 1 CAP PO TID NEUROPATHY (Reported) Sennosides/Docusate Sodium (Docusate Sodium-Senna Tablet) 8.6 MG-50 MG TABLET 2 TAB PO BID CONSTIPATION (Reported) Thiamine HCl (B-1) 100 MG TABLET 1 TAB PO DAILY SUPPLEMENT (Reported) Trazodone HCl 50 MG TABLET 1 TAB PO QPM SLEEP (Reported) Triage Nurses Notes Reviewed? yes Onset: Gradual Duration: week(s):, waxing and waning Timing: recent history Severity: mild Pain/Injury Location: Right: Knee. Method of Injury: unknown Modifying Factors: Improves With: rest. Worsens With: movement. Associated Symptoms: swelling HPI: 31 yo woman, h/o chronic knee pain, presents with with right knee pain off and on for several years, now with right knee pain for the past month. She notes mild swelling, no new trauma. She notes that it can be painful to walk, but is otherwise well. She is taking her chronic pain medications. Past History Travel History Traveled to [place] past 21 day No Medical History Any Pertinent Medical History? 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 No Review of Systems Review of Systems Constitutional: Reports: no symptoms. EENTM: Reports: no symptoms. Respiratory: Reports: no symptoms. Cardiovascular: Reports: no symptoms. Gastrointestinal/Abdominal: Reports: no symptoms. Genitourinary: Reports: no symptoms. Musculoskeletal: Reports: no symptoms. Skin: Reports: no symptoms. Neurological/Psychological: Reports: no symptoms. Hematologic/Endocrine: Reports: no symptoms. Immunological: Reports: no symptoms. All Other Systems: Reviewed and Negative Physical Exam Physical Exam General Appearance: well developed/nourished, mild distress Head: atraumatic Eyes: Bilateral: normal appearance. Ears, Nose, Throat: normal pharynx, normal ENT inspection, hearing grossly normal Neck: normal inspection, supple Cardiovascular/Respiratory: regular rate/rhythm Back: normal inspection Leg Right: right knee with stable ligaments, mild crepitus, minimal effusion. no focal bony tenderness. Skin: intact, normal color, warm/dry Lymphatic: no anterior cervical reed Progress Differential Diagnosis: sprain, osteoarthritis Plan of Care: right diana bandage by nursing team... encouraged follow up with orthopedist. Diagnostic Imaging: Viewed by Me: Radiology Read, Ultrasound. Discussed w/RAD: Radiology Read, Ultrasound. Radiology Impression: bilateral u/s (november 2016) - no dvt... popliteal cyst noted...full report below. , right knee (sep 2015) - osteoarthritis, full report below. Comments: PATIENT: BEVERLY HARDIN PRESENT AGE: 30 PATIENT ACCOUNT NO: [id number] : 83 LOCATION: [facility] ORDERING PHYSICIAN: JANINE CASTELLANOS PA-C SERVICE DATE: 09/27/15 EXAM TYPE: RAD - XRY-KNEE COMPLETE RIGHT EXAMINATION: XR KNEE, RIGHT CLINICAL INFORMATION: Right knee pain. Evaluate for fracture after fall. COMPARISON: None. TECHNIQUE: Right knee, 4 views. FINDINGS: Small joint effusion. Moderate tricompartmental osteoarthritis as manifest by narrowing of the joint spaces and osteophyte formation. The degree of arthritic disease is unexpected relative to the patient age. Correlate for history of prior knee trauma (e.g. prior ACL tear). No acute fracture or subluxation. IMPRESSION: 1. No acute osseous injury at the right knee. 2. Moderate tricompartmental osteoarthritis. Given patient age, question whether there is history of prior cruciate ligament tear and/or chronic instability of the knee. DICTATED BY: YULISSA SMITH MD DATE/TIME DICTATED:09/27/151136 WEAVER HAND LOOM:NUPUR DATE/TIME TRANSCRIBED:09/27/151136 CONFIDENTIAL, DO NOT COPY WITHOUT APPROPRIATE AUTHORIZATION. <Electronically signed in Other Vendor System> SIGNED BY: YULISSA SMITH MD 09/27/15 1142 PATIENT: BEVERLY HARDIN PRESENT AGE: 31 PATIENT ACCOUNT NO: [id number] : 83 LOCATION: [facility] ORDERING PHYSICIAN: SAMANTHA CORDOVA MD SERVICE DATE: 12/10/16 EXAM TYPE: US - US-EXT BILAT VENOUS DOPPLER EXAMINATION: US TRIPLEX LOWER EXTREMITY, BILATERAL CLINICAL INFORMATION: Bilateral lower extremity swelling. COMPARISON: None. TECHNIQUE: Color-flow triplex imaging with spectral analysis and compression Doppler were performed on the bilateral lower extremities. FINDINGS: Respiratory variation, normal compression and augmented flow are noted throughout the bilateral lower extremities. The visualized common femoral vein, greater saphenous vein, femoral vein, profunda femoral vein, popliteal vein and visualized mid calf venous segments show no evidence of deep venous thrombosis. There is a 3.8 x 0.6 x 2.0 cm right popliteal fossa De Jesus's cyst. IMPRESSION: 1. Normal triplex scan without evidence of deep venous thrombosis involving the bilateral lower extremities. 2. A right popliteal fossa De Jesus's cyst is seen. DICTATED BY: USGEY ROGERS MD DATE/TIME DICTATED:12/10/160 WEAVER HAND LOOM:NUPUR DATE/TIME TRANSCRIBED:12/10/161319 CONFIDENTIAL, DO NOT COPY WITHOUT APPROPRIATE AUTHORIZATION. <Electronically signed in Other Vendor System> SIGNED BY: SUGEY ROGERS MD 12/10/160 Departure Departure Disposition: HOME OR SELF CARE Condition: Stable Clinical Impression Primary Impression: Osteoarthritis of right knee Secondary Impressions: Chronic pain Referrals: [place] MORGAN,MED Huerta (PCP/Family) Departure Forms: Customer Survey General Discharge Information
[2016-12-20 02:49] VITALS: BP 172/110
== END 2016-12-20 03:11 ==
LOC: ERH 02:38
DX: M17.9 Osteoarthritis of knee, unspecified (principal); G89.29 Other chronic pain
CPT/HCPCS: 99282

== ENCOUNTER 2017-01-16 22:05 | Emergency (ER) | payer OTHER ==
[~2017-01-16] VITALS: Ht 180.3 cm; Wt 77.6 kg
[2017-01-16 22:12] VITALS: BP 142/95
== END 2017-01-16 22:43 | disposition admitted as inpatient to this hospital (09) ==
LOC: ERH 22:05
DX: M25.562 Pain in left knee (principal); M25.561 Pain in right knee

== ENCOUNTER 2017-01-25 07:35 | Emergency (ER) | payer OTHER ==
[~2017-01-25] VITALS: Ht 172.7 cm; Wt 77.6 kg
--- NOTE | 2017-01-25 08:02 | ED MVC/FALL/TRAUMA COMPLAINT ---
History of Present Illness General Chief Complaint: General Adult Stated Complaint: BIBA FALL YES, NOW LEG/FEET NUMBNESS,R HIP PAIN Source: patient, old records Exam Limitations: no limitations Vital Signs & Intake/Output Vital Signs & Intake/Output ED Intake and Output 01/26 0000 01/25 1200 Intake Total 45 Output Total Balance 45 Intake, Oral 45 Patient 171 lb Weight Weight Reported by Patient Measurement Method Allergies Coded Allergies: acetaminophen (From TYLENOL) (Severe, STATES HER THROAT CLOSES UP 11/23/16) Penicillins (ANAPHYLAXIS 05/02/16) ibuprofen (From MOTRIN) (ANALPHALAXIS 01/25/17) naproxen (ANAPHYLAXIS 05/02/16) Reconcile Medications Amlodipine Besylate 5 MG TABLET 1 TAB PO DAILY HTN (Reported) Aripiprazole (Abilify) 10 MG TABLET 1 TAB PO DAILY DEPRESSION (Reported) Diazepam (Valium) 10 MG TABLET 10 MG PO TID PRN DJD (Reported) Diclofenac Sodium 75 MG TABLET.DR 1 TAB PO BID PAIN (Reported) Folic Acid 1 MG TABLET 1 TAB PO DAILY SUPPLEMENT (Reported) Furosemide (Lasix) 20 MG TABLET 1 TAB PO DAILY EDEMA Furosemide (Lasix) 20 MG TABLET 1 TAB PO DAILY SWELLING Lisinopril 10 MG TABLET 10 MG PO D HTN (Reported) Oxycodone HCl 30 MG TABLET 1 TAB PO 5 TIMES A DAY PAIN (Reported) Pregabalin (Lyrica) 100 MG CAPSULE 1 CAP PO TID NEUROPATHY (Reported) Sennosides/Docusate Sodium (Docusate Sodium-Senna Tablet) 8.6 MG-50 MG TABLET 2 TAB PO BID CONSTIPATION (Reported) Thiamine HCl (B-1) 100 MG TABLET 1 TAB PO DAILY SUPPLEMENT (Reported) Trazodone HCl 50 MG TABLET 1 TAB PO QPM SLEEP (Reported) Triage Note: TRIP AND FALL YESTERDAY INJURING RIGHT HIP. STATES NECK SURGERY IN SEPTEMBER OF THIS YEAR AND THEY TOOK A BONE OUT OF HER HIP. STATES NUMBNESS IN BOTH LEGS AND RIGHT HAND Triage Nurses Notes Reviewed? yes Onset: Abrupt Duration: day(s): (1) Timing: multiple episodes today Severity: mild, moderate Method of Injury: fall Loss of Consciousness: no loss of consciousness Modifying Factors: Worsens With: movement. Associated Symptoms: KNEE PAIN/SWELLING : No Patient currently breastfeeds: No HPI: 31 year old female with right hip and knee pain after trip and fall yesterday. Pain worse with range of motion and walking. Also has chronic right hand numbness after neck surgery. She is on lyrica for the same. She states she wanted to make sure nothing was broken and stated that she has nothing for pain. Patient is prescribed oxycodone 3-4 times daily and she states she is in the process of moving and has no access to her pain medications. Past History Travel History Traveled to [place] past 21 day No Medical History Any Pertinent Medical History? 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 No Review of Systems Review of Systems Constitutional: Denies: chills, fever. Eyes: Reports: no symptoms. Ears, Nose, Throat, Mouth: Reports: no symptoms. Respiratory: Denies: cough, short of breath. Cardiovascular: Denies: chest pain, palpitations. Gastrointestinal/Abdominal: Denies: abdominal pain. Genitourinary: Reports: no symptoms. Musculoskeletal: Reports: back pain (CHRONIC), joint pain, joint swelling, muscle pain. Denies: muscle stiffness, neck pain. Skin: Denies: rash. Neurological/Psychological: Reports: no symptoms. All Other Systems: Reviewed and Negative Physical Exam Physical Exam General Appearance: well developed/nourished, alert, awake, mild distress Head: atraumatic, normal appearance Eyes: Bilateral: normal appearance, PERRL, EOMI. Ears, Nose, Throat, Mouth: hearing grossly normal, moist mucous membrane Neck: normal inspection, supple, full range of motion Respiratory: normal breath sounds, no respiratory distress Cardiovascular: regular rate/rhythm Peripheral Pulses: 2+ radial (R), 2+ radial (L) Gastrointestinal: normal bowel sounds, non-tender, no organomegaly Extremities: RIGHT KNEE TENDER/SWOLLEN PAINFUL RANGE OF MOTION, STABLE LIGAMENTOUS EXAMINATION Neurologic/Psych: no motor/sensory deficits, awake, alert, oriented x 3 Skin: intact, normal color, warm/dry Core Measures ACS in differential dx? No Severe Sepsis Present: No Septic Shock Present: No Progress Differential Diagnosis: pelvis injury, RIGHT KNEE FRACTURE, SPRAIN, CONTUSION Plan of Care: Orders Procedure Date/time Status XRY-AP PELVIS 01/25 809 Active XRY-KNEE COMPLETE RIGHT 01/25 809 Active 8:35 am ambulatory in the ed without distress. (ART MORGAN,SAMANTHA) Diagnostic Imaging: Viewed by Me: Radiology Read. Discussed w/RAD: Radiology Read. Radiology Impression: PATIENT: BEVERLY HARDIN PRESENT AGE: 31 PATIENT ACCOUNT NO: [id number] : 83 LOCATION: [facility] ORDERING PHYSICIAN: SAMANTHA CORDOVA MD SERVICE DATE: 01/25/17 EXAM TYPE: RAD - XRY -AP PELVIS; XRY-KNEE COMPLETE RIGHT EXAMINATION: XR PELVIS XR KNEE, RIGHT CLINICAL INFORMATION: History of fall with right hip and knee pain. Evaluate for fracture. COMPARISON: None TECHNIQUE: AP view of the pelvis. Right knee, 4 views FINDINGS: Pelvis: Pelvic bones have normal alignment. Enthesophyte formation at the iliac crests. Sacroiliac joints and pubic symphysis are normal. The left hip joint space is well-preserved. There is negligible osteophyte formation at the left hip. At the right hip, there is mild superior joint space narrowing and osteophyte formation. A broad region of abnormal sclerosis seen in the right iliac bone extending superior from the acetabular roof. Question if there is a known history of remote trauma to this area. There are no comparison imaging exams to further characterize this sclerosis or its chronicity. Right knee: The nonweightbearing views of the right knee show normal osseous alignment. No acute fracture, subluxation or joint effusion. There is tricompartmental osteophyte formation. 0.2 x 0.5 cm ossific body is present within the anterior knee due to Hoffa's fat pad. IMPRESSION: 1. Pelvis: No acute findings. Mild osteoarthrosis of the hips (right more so than left). Abnormal sclerosis of the inferior right iliac bone extending superior from the acetabulum is of uncertain cause. Question whether there is history of trauma to this region. Note that the enthesophytes of the right iliac crest are larger than those observed on the left. If there is no historical/clinical explanation for the abnormality, recommend further characterization with CT or MR imaging of the pelvis. 2. Right knee: Moderate tricompartmental osteoarthrosis of the right knee. DICTATED BY: YULISSA SMITH MD DATE/TIME DICTATED:01/25/17841 WIRELESS MANAGER:NUPUR DATE/TIME TRANSCRIBED:01/25/17841 CONFIDENTIAL, DO NOT COPY WITHOUT APPROPRIATE AUTHORIZATION. <Electronically signed in Other Vendor System> SIGNED BY: YULISSA SMITH MD 01/25/17 0854 Departure Departure Time of Disposition: 920 Disposition: HOME OR SELF CARE Condition: Stable Clinical Impression Primary Impression: Contusion Secondary Impressions: Arthritis, Right knee sprain Referrals: [place] MORGAN,MED Huerta (PCP/Family) Additional Instructions: CONTINUE YOUR REGULAR MEDICATIONS. ICE, REST AND ELEVATE THE KNEE. Departure Forms: Customer Survey General Discharge Information
--- NOTE | 2017-01-25 08:54 | RADIOLOGY REPORT ---
EXAMINATION: XR PELVIS XR KNEE, RIGHT CLINICAL INFORMATION: History of fall with right hip and knee pain. Evaluate for fracture. COMPARISON: None TECHNIQUE: AP view of the pelvis. Right knee, 4 views FINDINGS: Pelvis: Pelvic bones have normal alignment. Enthesophyte formation at the iliac crests. Sacroiliac joints and pubic symphysis are normal. The left hip joint space is well-preserved. There is negligible osteophyte formation at the left hip. At the right hip, there is mild superior joint space narrowing and osteophyte formation. A broad region of abnormal sclerosis seen in the right iliac bone extending superior from the acetabular roof. Question if there is a known history of remote trauma to this area. There are no comparison imaging exams to further characterize this sclerosis or its chronicity. Right knee: The nonweightbearing views of the right knee show normal osseous alignment. No acute fracture, subluxation or joint effusion. There is tricompartmental osteophyte formation. 0.2 x 0.5 cm ossific body is present within the anterior knee due to Hoffa's fat pad. IMPRESSION: 1. Pelvis: No acute findings. Mild osteoarthrosis of the hips (right more so than left). Abnormal sclerosis of the inferior right iliac bone extending superior from the acetabulum is of uncertain cause. Question whether there is history of trauma to this region. Note that the enthesophytes of the right iliac crest are larger than those observed on the left. If there is no historical/clinical explanation for the abnormality, recommend further characterization with CT or MR imaging of the pelvis. 2. Right knee: Moderate tricompartmental osteoarthrosis of the right knee.
[2017-01-25 09:26] VITALS: BP 124/74
== END 2017-01-25 09:27 ==
LOC: ERH 07:35
DX: S83.91XA Sprain of unspecified site of right knee, initial encounter (principal); S70.01XA Contusion of right hip, initial encounter; M19.90 Unspecified osteoarthritis, unspecified site; W19.XXXA Unspecified fall, initial encounter; Y92.9 Unspecified place or not applicable; Y93.9 Activity, unspecified
CPT/HCPCS: 72170; 73562-RT